=== PATIENT | female | born 2000 ===

== ENCOUNTER 2019-10-26 07:01 | Day surgery (SDC) | payer MEDICARE, MEDICAID ==
[2019-10-26] MEDS ORDERED: PROPOFOL INJ 200 MG/20 ML VIAL IV ONE (07:55)
--- NOTE | 2019-10-26 09:33 | Operative Report ---
Operative Report DATE OF SURGERY: 10/26/19 Operative Report: The risk, benefits and alternatives of the procedure including the risk of bleeding, perforation requiring surgery have been explained to the patient in detail and informed consent has been obtained. Patient is taken back to the endoscopy suite and placed in a left, lateral decubital position. Timeout was called. Propofol medication is administered. Rectal examination is done which did not reveal any masses, tears or fissures. An Olympus videoscope was introduced into the patient's rectum. Scope was then carefully advanced all the way to the cecum. Cecum was identified by the usual anatomical landmarks including the ileocecal valve as well as the appendiceal office. Photodocumentation is obtained. Scope was then sequentially pulled back via the various segments of the colon including the ascending colon, hepatic flexure, transverse colon, splenic flexure, descending colon and finally into the rectosigmoid portions of the colon. Retroflexion maneuvers performed. PREOPERATIVE DIAGNOSIS: Change in bowel habits POSTOPERATIVE DIAGNOSIS: atonic colon. Decent prep but right side of the colon still filled with residual material. Right colon inflammation status post biopsy. No obstruction noted OPERATION: Colonoscopy with biopsy SURGEON: MARY KAY BLANCO ANESTHESIA: LMAC TISSUE REMOVED OR ALTERED: As noted above. COMPLICATIONS: None. ESTIMATED BLOOD LOSS: None. INTRAOPERATIVE FINDINGS: As noted above. PROCEDURE: Patient tolerated the procedure well. No immediate postprocedure complications are noted. Patient is discharged in good condition. Discharge date 10/26/2019. Discharge diet: Regular. Discharge activity: Regular. 2 to 3-week follow-up to discuss findings. Patient is instructed to call the office or proceed to the emergency room should there be any further problems or questions. Wait on the pathology.
[2019-10-26 10:12] VITALS: BP 108/73
== END 2019-10-26 10:15 | disposition home or self-care (01) ==
LOC: END 07:01
PROVIDERS: ATTEND Internal Medicine Gastroenterology
DX: K59.00 Constipation, unspecified (principal); K52.9 Noninfective gastroenteritis and colitis, unspecified; E11.9 Type 2 diabetes mellitus without complications; I10 Essential (primary) hypertension; F84.0 Autistic disorder; F20.9 Schizophrenia, unspecified; Z79.84 Long term (current) use of oral hypoglycemic drugs; Z79.899 Other long term (current) drug therapy; K59.8 Other specified functional intestinal disorders
CPT/HCPCS: 45380; 82962; 88305 ×2; 00811; J2704; 811

== ENCOUNTER 2019-11-23 14:22 | Emergency (ER) | payer MEDICARE, MEDICAID ==
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
--- NOTE | 2019-11-23 15:23 | RADIOLOGY REPORT (SQ) ---
EXAM DESCRIPTION: CHEST SINGLE VIEW IMAGES COMPLETED DATE/TIME: 11/23/2019 3:14 pm REASON FOR STUDY: bed 5 tube placement COMPARISON: None. EXAM PARAMETERS: NUMBER OF VIEWS: One view. TECHNIQUE: Single frontal radiographic view of the chest acquired. RADIATION DOSE: NA LIMITATIONS: None. FINDINGS: LUNGS AND PLEURA: Endotracheal tube and NG tube are in place. Endotracheal tube lies ralph ral cm above the wing. Tip of the NG tube lies in the left upper quadrant most likely within stoma ch. Lung volumes are low. No focal consolidation. No pneumothorax. MEDIASTINUM AND HILAR STRUCTURES: No masses. Contour normal. HEART AND VASCULAR STRUCTURES: Heart normal in size. Normal vasculature. BONES: No acute findings. HARDWARE: None in the chest. OTHER: No other significant finding. IMPRESSION: NG tube and endotracheal tube are in satisfactory position. Low lung volumes. TECHNICAL DOCUMENTATION: JOB ID: [id number] 2010 [employer]- All Rights Reserved Reading location - IP/workstation name: [email or web address]
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
[2019-11-23] MEDS ORDERED: HALOPERIDOL LACTATE INJ 5 MG/1 ML VIAL IV ONE (16:14)
[2019-11-23] MEDS ORDERED: HALOPERIDOL LACTATE INJ 5 MG/1 ML VIAL IM ONE (16:23)
[2019-11-23 16:46] LABS: INTERNATIONAL RATION (INR) 1.07; PROTHROMBIN TIME 14.1 SEC (11.4-15.4)
[2019-11-23 16:55] LABS: ABSOLUTE EOSINOPHILS # (AUTO) 0.1 10^3/uL (0.0-0.6); ABSOLUTE LYMPHOCYTES (AUTO) 1.9 10^3/uL (0.5-4.7); ABSOLUTE MONOCYTES (AUTO) 0.8 10^3/uL (0.1-1.4); ABSOLUTE NEUT (AUTO) 6.6 10^3/uL (1.7-8.2); BASOPHILS % (AUTO) 0.5 % (0-2); HEMATOCRIT 35.1 % (36.0-47.0); LYMPHOCYTES % (AUTO) 20.1 % (13-45); MEAN CORPUSCULAR HEMOGLOBIN 29.9 pg (27.0-33.4); MEAN CORPUSCULAR HGB CONC 34.3 g/dL (32.0-36.0); MEAN CORPUSCULAR VOLUME 87 fl (80-97); MONOCYTES % (AUTO) 8.7 % (3-13); PLATELET COUNT 190 10^3/uL (150-450); RED BLOOD COUNT 4.02 10^6/uL (3.72-5.28); RED CELL DISTRIBUTION WIDTH 13.3 % (11.5-14.0); SEGMENTED NEUTROPHILS % (AUTO) 69.7 % (42-78); TOTAL CELLS COUNTED % (AUTO) 100 %; WHITE BLOOD COUNT 9.5 10^3/uL (4.0-10.5)
[2019-11-23 16:56] LABS: ALBUMIN 4.4 g/dL (3.5-5.0); ALKALINE PHOSPHATASE 52 U/L (38-126); ANION GAP 14 (5-19); ASPARTATE AMINO TRANSFERASE 20 U/L (14-36); BILIRUBIN,DIRECT 0.3 mg/dL (0.0-0.4); BILIRUBIN,TOTAL 0.4 mg/dL (0.2-1.3); BLOOD UREA NITROGEN 8 mg/dL (7-20); CALCIUM 9.2 mg/dL (8.4-10.2); CARBON DIOXIDE 23 mmol/L (22-30); CHLORIDE 103 mmol/L (98-107); CREATINE KINASE 108 U/L (30-135); GLUCOSE 135 mg/dL (75-110); POTASSIUM 4.8 mmol/L (3.6-5.0); TOTAL PROTEIN 6.8 g/dL (6.3-8.2)
[2019-11-23 17:07] LABS: ACETAMINOPHEN < 10 ug/mL (10-30); ALCOHOL < 10 mg/dL (NONE DETECTED); SALICYLATE < 1.0 mg/dL (2.0-20.0)
--- NOTE | 2019-11-23 17:08 | RADIOLOGY REPORT (SQ) ---
EXAM DESCRIPTION: CHEST SINGLE VIEW IMAGES COMPLETED DATE/TIME: 11/23/2019 4:57 pm REASON FOR STUDY: Postextubation COMPARISON: Earlier the same day. EXAM PARAMETERS: NUMBER OF VIEWS: One view. TECHNIQUE: Single frontal radiographic view of the chest acquired. RADIATION DOSE: NA LIMITATIONS: Low lung volumes. FINDINGS: LUNGS AND PLEURA: Patient has been extubated. There is atelectasis in the right base. Mavis ng guajardo are otherwise clear. Study is limited by low lung volumes. MEDIASTINUM AND HILAR STRUCTURES: No masses. Contour normal. HEART AND VASCULAR STRUCTURES: Stable in appearance. BONES: No acute findings. HARDWARE: None in the chest. OTHER: NG tube is been removed. IMPRESSION: Right basilar airspace disease most consistent with atelectasis. TECHNICAL DOCUMENTATION: JOB ID: [id number] 2010 [employer]- All Rights Reserved Reading location - IP/workstation name: [email or web address]
[2019-11-23] MEDS ORDERED: NORMAL SALINE 1000 ML 1,000 ML IV ONE (17:53)
[2019-11-23 17:59] LABS: APPEARANCE,URINE SLIGHTLY-CLOUDY; BILIRUBIN,URINE NEGATIVE (NEGATIVE); COLOR,URINE YELLOW; GLUCOSE, URINE NEGATIVE (NEGATIVE); KETONES,URINE NEGATIVE (NEGATIVE); PROTEIN,URINE 100 mg/dL (NEGATIVE); URINE SPECIFIC GRAVITY 1.019; UROBILINOGEN,URINE NEGATIVE mg/dL (<2.0)
[2019-11-23 18:21] LABS: URINE AMPHETAMINES SCREEN NEGATIVE; URINE BARBITURATES SCREEN NEGATIVE; URINE BENZODIAZEPINES SCREEN NEGATIVE; URINE COCAINE SCREEN NEGATIVE; URINE MARIJUANA (THC) SCREEN NEGATIVE; URINE METHADONE SCREEN NEGATIVE; URINE PHENCYCLIDINE SCREEN NEGATIVE
--- NOTE | 2019-11-23 19:51 | EKG REPORT ---
SEVERITY:- ABNORMAL ECG - SINUS RHYTHM NONSPECIFIC T ABNORMALITIES, ANTERIOR LEADS : Confirmed by: Germaine Quiroz 23-Nov-2019 19:50:35
[2019-11-23] MEDS ORDERED: HYDROXYZINE PAMOATE 25 MG CAPSULE PO PRN (21:36)
[2019-11-23] MEDS: RISPERIDONE 1 MG TABLET PO SCH (22:21)
[2019-11-23] MEDS: TRAZODONE HCL 50 MG TABLET PO SCH (22:21)
[2019-11-23] MEDS: PROPRANOLOL HCL 10 MG TABLET PO SCH (22:24)
[2019-11-24] MEDS: PROPRANOLOL HCL 10 MG TABLET PO SCH ×3 (07:41→21:57)
[2019-11-24] MEDS: NALTREXONE HCL 50 MG TABLET PO SCH (11:28)
[2019-11-24] MEDS: RISPERIDONE 1 MG TABLET PO SCH ×2 (11:29→21:58)
[2019-11-24] MEDS: FLUOXETINE HCL 20 MG CAPSULE PO SCH (11:29)
[2019-11-24] MEDS: METFORMIN HCL 500 MG TABLET PO SCH (11:30)
[2019-11-24] MEDS: DIVALPROEX SODIUM 250 MG TABLET.DR PO SCH (13:41)
--- NOTE | 2019-11-24 14:37 | RADIOLOGY REPORT (SQ) ---
EXAM DESCRIPTION: CHEST SINGLE VIEW IMAGES COMPLETED DATE/TIME: 11/24/2019 2:26 pm REASON FOR STUDY: cough COMPARISON: 11/23/2019 EXAM PARAMETERS: NUMBER OF VIEWS: One view. TECHNIQUE: Single frontal radiographic view of the chest acquired. RADIATION DOSE: NA LIMITATIONS: None. FINDINGS: LUNGS AND PLEURA: There is ill-defined persistent opacification in the right lung base. T his appears to be slightly improved. There is better aeration of the lungs on this study. MEDIASTINUM AND HILAR STRUCTURES: No masses. Contour normal. HEART AND VASCULAR STRUCTURES: Heart normal in size. Normal vasculature. BONES: No acute findings. HARDWARE: None in the chest. OTHER: No other significant finding. IMPRESSION: Cannot exclude a limited right lower lobe or middle lobe pneumonia. TECHNICAL DOCUMENTATION: JOB ID: [id number] 2010 [employer]- All Rights Reserved Reading location - IP/workstation name: [email or web address]
[2019-11-24] MEDS: AMOXICILLIN TR/POT CLAVULANATE 875-125 MG TAB PO SCH (17:49)
[2019-11-24] MEDS: TRAZODONE HCL 50 MG TABLET PO SCH (21:56)
[2019-11-25] MEDS: PROPRANOLOL HCL 10 MG TABLET PO SCH ×3 (06:51→22:48)
[2019-11-25] MEDS: AMOXICILLIN TR/POT CLAVULANATE 875-125 MG TAB PO SCH ×2 (12:18→20:40)
[2019-11-25] MEDS: METFORMIN HCL 500 MG TABLET PO SCH (12:19)
[2019-11-25] MEDS: FLUOXETINE HCL 20 MG CAPSULE PO SCH (12:48)
[2019-11-25] MEDS: NALTREXONE HCL 50 MG TABLET PO SCH (13:26)
[2019-11-25] MEDS: RISPERIDONE 1 MG TABLET PO SCH ×2 (13:34→22:47)
[2019-11-25] MEDS: DIVALPROEX SODIUM 250 MG TABLET.DR PO SCH (13:35)
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
--- NOTE | 2019-11-25 17:17 | ER Document Report ---
Doctor's Note Notes: 11/25/19 17:16 Patient reassessed just now. Patient is resting comfortably in the bed watching TV. She is just finished having a snack. She has been tolerating p.o. well. Vital signs have been stable. We are currently working on placement through social work. Social workers had multiple conversations with mom trying to arrange for the best placement for the patient. We will continue to manage the patient here until we can obtain a satisfactory disposition.
[2019-11-25] MEDS ORDERED: MIDAZOLAM 2 MG/2 ML INJ IM ONE (19:24)
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
[2019-11-25] MEDS ORDERED: BENZTROPINE MESYLATE INJ 2 MG/2 ML AMPULE IM ONE (21:59)
--- NOTE | 2019-11-25 22:00 | ER Document Report ---
Doctor's Note Notes: 11/25/19 21:59 Nursing staff approached me about medication orders for this patient. The patient is being uncooperative and unruly. Mental health recommended adding Thorazine 50 mg IM every 6 as needed and Cogentin 1 mg IM now. They also advised canceling the order for Vistaril. This is a social hold so I did speak with the attending physician, Dr. Vasquez who agrees with adding these medications.
[2019-11-25] MEDS: CHLORPROMAZINE HCL INJ 25 MG/1 ML AMPULE IM PRN (22:42)
[2019-11-25] MEDS: TRAZODONE HCL 50 MG TABLET PO SCH (22:47)
[2019-11-26] MEDS: PROPRANOLOL HCL 10 MG TABLET PO SCH ×3 (05:57→22:32)
[2019-11-26] MEDS: METFORMIN HCL 500 MG TABLET PO SCH (09:41)
[2019-11-26] MEDS: RISPERIDONE 1 MG TABLET PO SCH ×2 (09:44→22:33)
[2019-11-26] MEDS: AMOXICILLIN TR/POT CLAVULANATE 875-125 MG TAB PO SCH ×2 (09:44→17:58)
[2019-11-26] MEDS: DIVALPROEX SODIUM 250 MG TABLET.DR PO SCH (09:45)
[2019-11-26] MEDS: FLUOXETINE HCL 20 MG CAPSULE PO SCH (09:46)
[2019-11-26] MEDS: NALTREXONE HCL 50 MG TABLET PO SCH (09:47)
--- NOTE | 2019-11-26 12:06 | PSYCHOLOGICAL NOTE ---
Psych Note - Psych Note Date seen by psych provider: 11/25/19 - Phone call with Risk Management Time seen by psych provider: 20:30 Psych Note: Spoke with Danna Ceci regarding mother refusing to picker packer daughter. Advised her fully of situation and concern that mother wanted to come visit the patient but not pick her up. Asked Danna if we were required to provide her information more than significant incidents. She stated we should provide her information if she asks and to contact Jerica Cuevas (LINER MACHINE OPERATOR) since she (Danna) would be out of town for the next week and it was late (2030 hrs).
--- NOTE | 2019-11-26 12:12 | PSYCHOLOGICAL NOTE ---
Psych Note - Psych Note Date seen by psych provider: 11/26/19 Time seen by psych provider: 12:00 Psych Note: At 1053 patient's mother called the [facility] office. When this clinician answered "this is Is[facility]ell at [place]" mother stated "Oh I called the wrong number thank you" and hung up. From [id number] spoke to Hali ([phone]) from [facility] for care coordination/continuity of care. She identified she called mother this morning and mother informed her of the behavioral episode last evening. She was informed patient had been calm and cooperative prior to episode and after so it was felt to be directly related to mother not picking patient up for discharge (likely patient's perspective being mother not visiting). She reported she is a temporary contact for mother and patient. She further stated they are looking to assign a more permanent day care teacher to help navigate and obtain appropriate services. At 1227 went to check in on patient. She was sleeping. Attending ED Nurse identified patient was able to let her know she had gotten syrup on her shirt, patient changed her own clothes, and was even polite and cordial saying thank you. Attending Patient Research Subject reported patient asked him to get her breakfast, he said no she could get up to get it herself, and she did. He also noted patient asked for a table, he told her no and she ate her food in her bed. Finally he stated patient asked him to cut up her food, he said no you can use the fork or tear it, which she did. Patient's status has not changed and mental status is considered baseline. Consulted Dr. Mckeon regarding the management and care of patient.
--- NOTE | 2019-11-26 13:48 | ER Document Report ---
Doctor's Note Notes: 11/26/19 13:14 Spoke with mother, Ann Johnson, of patient for approximately 30 minutes concerning patient. She discussed her concerns regarding lack of resources and the need for her daughter to be in a facility. She discussed how she believed the [place] [facility] worked and her thoughts that her daughter could stay at the hospital until a facility was located. Empathized with the mother regarding her frustrations about the lack of resources for someone who has severe IDD and the inability to place her in a psychiatric facility. Advised her that most psychiatric facilities are private and have their own criteria, that [facility] does not have a psychiatric unit, we were only an emergency department, and she would be unable to stay in the hospital until patient was accepted on the waiver. Mother continued to discuss her previous problems in other states and was not receptive to offers for services as she would "yes but...." when offered follow up or assistance or information about the service. Discussed with mother the Patient's outburst last evening and that it was documented that t was secondary to the patient not seeing or talking with her mother. Mother immediately commented that gher outburst and subsequent behavior, i.e. being aggressive, impulsive, putting towel around neck, tearing sheets off bed, grabbing anything available, is typical of her her behavior and outbursts. Mother continued to be resistant to picking up her daughter stating she feared she would be charged criminally if she had to defend her daughter if her daughter tried to hurt her. I explained to her again that APS was contacted and we try to work weith them to put something in place for the protection of individuals, not be punitive in nature. She stated multiple times she was not upset with the hospital or personnel, rather the State of [place] for the way they operate and do not have appropriate services for someone with her daughter's disabilities. Continued to empathize and provide a different perspective with regard to how she could be assisted once discharged but mother remained resistant Spoke with Jerica Cuevas at conclusion of conversation with update.
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
[2019-11-26] MEDS ORDERED: IBUPROFEN 600 MG TABLET PO ONE (19:33)
[2019-11-26] MEDS: TRAZODONE HCL 50 MG TABLET PO SCH (22:32)
[2019-11-27] MEDS ORDERED: TRAZODONE HCL 50 MG TABLET PO ONE (00:55)
[2019-11-27] MEDS: PROPRANOLOL HCL 10 MG TABLET PO SCH ×3 (05:53→21:28)
[2019-11-27] MEDS: METFORMIN HCL 500 MG TABLET PO SCH (10:45)
[2019-11-27] MEDS: DIVALPROEX SODIUM 250 MG TABLET.DR PO SCH (10:45)
[2019-11-27] MEDS: NALTREXONE HCL 50 MG TABLET PO SCH (10:45)
[2019-11-27] MEDS: FLUOXETINE HCL 20 MG CAPSULE PO SCH (10:45)
[2019-11-27] MEDS: AMOXICILLIN TR/POT CLAVULANATE 875-125 MG TAB PO SCH ×2 (11:05→17:37)
[2019-11-27] MEDS: RISPERIDONE 1 MG TABLET PO SCH ×2 (11:07→21:32)
--- NOTE | 2019-11-27 11:15 | ER Document Report ---
Doctor's Note Notes: 11/27/19 10:52 Maddie, Raveler from [facility] called seeking an update on the case. Advised her I had spoken with patient's mother, Jerica Cuevas, and Lana Catalan yesterday, all in effort of ongoing coordination. Maddie advised she speaks with mother daily and mother continues to refuse the resources and services they have offered as well such as day programming and a form a of in home services. Maddie indicated the case will be transferred to more permanent care coordinators who will continue to work on the case but feels as though they will not likely have a solution before the end of the day and if mom continues to refuse to bean picker machine operator the patient, the patient will likely continue to remain in the ED through the weekend. Maddie indicated she felt in part the difficulty was that the Patient has displayed just one outburst since coming to the ED, this is her first crisis response since moving to [place], and as such, the pattern of behavior outbursts appear to controlled at this time and the initial crisis resolved. I advised Maddie that I was in agreement as it was felt the crisis was stabilized, has been stabilized, and the Patient was in a position to be discharged, has been in a position for discharge, and that longer term care can continue to be worked on while Patient is at home. Advised Maddie that Patient will always be subject to outbursts, and as mother recently stated, these have been ongoing since age 1, thus not treatable or curable in an ED environment. Additionally, the behavior outbursts are not predictable and the ED cannot hold the Patient waiting for her to have a next outburst. As stated to Maddie, it is felt the Patient's rights are being violated by the mother refusing to pick her up and take her home. APS has been contacted on two occasions but has yet to come to the hospital (at least by lack of documentation) to see the Patient and per Maddie (after talking with mother this morning) APS has yet to contact her as well. Patient is stabilized on her medications. Developmentally she is at age 1 per psychological report documentation provided by her mother. Her psychological and developmental condition is not likely to improve to meet her chronological age. Thus, she does not meet inpatient (i.e. emergency department) criteria as she is not capable of comprehending harm to self actions, rather her outbursts are simply impulse acts as a means of communicating frustration, anger, and other emotions she is not able to express or have the language abilities to communicate. The behavior outbursts cannot be broken down into acts, rather they are considered one incident, without thought, and are simply behaviors. She will always be risk for harming herself secondary to lack of danger and safety awareness. This condition is considered chronic in nature and not an acute condition. Her outbursts are an exacerbation of her inability to communicate or understand emotion and at that time, due to her size and strength (of which she does not have awareness), she is intimidating and requires multiple individuals to intervene in an effort to maintain her safety. Her cognitive limitations do not allow for abstract or higher level cortical thinking or even rational thought, as that part of her brain or functions of her brain are either not developed or are not accessible. As such, the diagnosis of Severe Autism, or IDD. The Patient is felt to require a structured, predictable, safe and comfortable environment going forward and likely for the unforseeable future, to maintain her safety and to provide her the best quality of life possible. However, at this time, the emergency department does not meet any of those requirements for this Patient as the ED is unpredictable, chaotic, and though every attempt is made to make it safety proof for patients, impulsive individuals like this Patient can find items such as bedsheets, hand equipment mechanic machines in the hallway, etc. to use as weapons. Moreover, the ED has constantly changing faces with shift changes, patient changes, etc. which can cause great confusion and anxiety, potentiating the possibility of a behavioral outburst. Thus, it remains highly recommended this Patient be discharged home with her mother until more permanent and higher level long-term placement can be located.
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
--- NOTE | 2019-11-27 14:55 | PSYCHOLOGICAL NOTE ---
Psych Note - Psych Note Date seen by psych provider: 11/27/19 Time seen by psych provider: 10:45 Psych Note: Reason for Consult: Behavioral Check in conducted with patient: Patient reports she remember clinician. She asks when she is going home and asked clinical to call her mom. Patient was offered a stuffed animal to re- enforce continued good behaviour. patient smiles and engages with clinician; she is at her baseline. While clinician was with another patient, the patient became nervous and scared. Safety companies were able to calm the patient, she continues to be compliant with staff request.
--- NOTE | 2019-11-27 18:19 | ER Document Report ---
Doctor's Note Notes: 11/27/19 18:19 The patient has done well today. She did get a stuffed animal to help her remain calm and it seemed to help. I am told at this point there is still no resolution to the placement dilemma that she faces.
[2019-11-27] MEDS ORDERED: CALCIUM CARBONATE 500 MG TAB.CHEW PO ONE (20:27)
[2019-11-27] MEDS: TRAZODONE HCL 50 MG TABLET PO SCH (21:32)
[2019-11-28] MEDS: PROPRANOLOL HCL 10 MG TABLET PO SCH ×3 (06:00→22:35)
[2019-11-28] MEDS: FLUOXETINE HCL 20 MG CAPSULE PO SCH (10:09)
[2019-11-28] MEDS: NALTREXONE HCL 50 MG TABLET PO SCH (10:09)
[2019-11-28] MEDS: DIVALPROEX SODIUM 250 MG TABLET.DR PO SCH (10:09)
[2019-11-28] MEDS: METFORMIN HCL 500 MG TABLET PO SCH (10:09)
[2019-11-28] MEDS: RISPERIDONE 1 MG TABLET PO SCH ×2 (10:10→22:35)
[2019-11-28] MEDS: AMOXICILLIN TR/POT CLAVULANATE 875-125 MG TAB PO SCH ×2 (10:10→18:35)
[2019-11-28] MEDS: CHLORPROMAZINE HCL INJ 25 MG/1 ML AMPULE IM PRN (16:35)
--- NOTE | 2019-11-28 20:41 | ER Document Report ---
Doctor's Note Notes: 11/28/19 20:39 Patient was seen today on rounds was noted to be upset and asking to go home. There has been no resolution in a disposition for this patient. She has been started on her home medications and awaiting a disposition.
[2019-11-28] MEDS: TRAZODONE HCL 50 MG TABLET PO SCH (22:35)
[2019-11-29] MEDS: PROPRANOLOL HCL 10 MG TABLET PO SCH ×3 (09:03→21:37)
[2019-11-29] MEDS: DIVALPROEX SODIUM 250 MG TABLET.DR PO SCH (09:18)
[2019-11-29] MEDS: METFORMIN HCL 500 MG TABLET PO SCH (09:18)
[2019-11-29] MEDS: RISPERIDONE 1 MG TABLET PO SCH ×2 (09:18→21:33)
[2019-11-29] MEDS: AMOXICILLIN TR/POT CLAVULANATE 875-125 MG TAB PO SCH ×2 (09:18→18:07)
[2019-11-29] MEDS: FLUOXETINE HCL 20 MG CAPSULE PO SCH (09:18)
[2019-11-29] MEDS: NALTREXONE HCL 50 MG TABLET PO SCH (10:10)
--- NOTE | 2019-11-29 12:20 | PSYCHOLOGICAL NOTE ---
Psych Note - Psych Note Date seen by psych provider: 11/29/19 Psych Note: Clinician spoke with APS after hours worker, Le Cárdenas at 1401. She stated she will contact the printing worker supervisor and will call back. Clinician received a call back for ARNAUD Lujan at 1422. She reports there is currently no information on the case. The printing worker supervisor has not staffed the case with the worker and it is not known if the patient's mother has been interviewed yet or what the plan will be, thus the official word currently is they do not have an update at this time. Clinician spoke with patient's mother to provide update at 1425. She confirms she received the envelope of resources from [facility]. She reports she called [facility] of [place] and was told the patient is either too old or they do not have the right programs for the patient. She reports [facility] has told her they are looking for placement and services. APS said that patient would stay at the hospital until the investigate was complete. She reports she will not sheepskin pickler her daughter until "they get her help." Patient's mother is legal guardian from the state of [place]. She asked if she is allowed to speak to the patient; this was offered with the understanding the patient may have a behavioral outburst because she wants to go home. She declines talking to her daughter, stating she understands the concern and feels it would be better not to talk to the patient. Patient's mother mentioned the patient was tested for sleep apnea and was waiting for her BiPAP machine in the mail; "I have a CPAP but they said they were sending a BiPAP....should be here in 2 weeks." updated Medication recommendations per [facility]'s contracted psychiatrist are as follows Please discontinue Trazadone Please decreased evening dose of Rispirdone to 2mg Please decrease Prozac to 20mg daily all other medications maintain at current dosing
--- NOTE | 2019-11-29 19:24 | ER Document Report ---
Doctor's Note Notes: 11/29/19 19:22 The patient has had a day where she spent most of the time in bed and more sleepy than usual. Staff notes that she is had a heart rate in the 46 range and for that reason was not given the beta-tita. Medication changes were recommended to discontinue the trazodone, decrease the Risperdal to 2 mg at nigh t and to decrease the Prozac to 20 mg daily. Those orders have been entered into the system. At the time that I visited the patient was about to eat dinner she is alert and talkative and appropriately smiled. He is still awaiting disposition.
[2019-11-29] MEDS: CHLORPROMAZINE HCL INJ 25 MG/1 ML AMPULE IM PRN (20:23)
[2019-11-30] MEDS: PROPRANOLOL HCL 10 MG TABLET PO SCH ×3 (05:31→22:24)
[2019-11-30] MEDS: FLUOXETINE HCL 20 MG CAPSULE PO SCH (09:19)
[2019-11-30] MEDS: DIVALPROEX SODIUM 250 MG TABLET.DR PO SCH (09:19)
[2019-11-30] MEDS: AMOXICILLIN TR/POT CLAVULANATE 875-125 MG TAB PO SCH ×2 (09:19→18:23)
[2019-11-30] MEDS: RISPERIDONE 1 MG TABLET PO SCH ×2 (09:22→21:27)
[2019-11-30] MEDS: METFORMIN HCL 500 MG TABLET PO SCH (09:22)
[2019-11-30] MEDS: NALTREXONE HCL 50 MG TABLET PO SCH (09:23)
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
--- NOTE | 2019-11-30 19:35 | ER Document Report ---
Doctor's Note Notes: 11/30/19 19:34 Patient reexamined just now. Patient finished dinner without problem about 45 minutes ago. Patient is easily aroused. When I asked patient if she was feeling okay she stated yes. Patient's vital signs have been stable today with heart rate improved as the beta-blockers been decreased. Patient has been w ithout significant issues today and is still awaiting placement.
[2019-12-01] MEDS: PROPRANOLOL HCL 10 MG TABLET PO SCH ×3 (06:51→21:54)
[2019-12-01] MEDS: CHLORPROMAZINE HCL INJ 25 MG/1 ML AMPULE IM PRN ×2 (09:57→17:16)
[2019-12-01] MEDS: DIVALPROEX SODIUM 250 MG TABLET.DR PO SCH (09:57)
[2019-12-01] MEDS: RISPERIDONE 1 MG TABLET PO SCH ×2 (09:58→21:59)
[2019-12-01] MEDS: FLUOXETINE HCL 20 MG CAPSULE PO SCH (09:58)
[2019-12-01] MEDS: METFORMIN HCL 500 MG TABLET PO SCH (09:58)
[2019-12-01] MEDS: AMOXICILLIN TR/POT CLAVULANATE 875-125 MG TAB PO SCH ×2 (09:58→18:49)
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
[2019-12-01] MEDS: NALTREXONE HCL 50 MG TABLET PO SCH (13:05)
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
--- NOTE | 2019-12-01 19:56 | PSYCHOLOGICAL NOTE ---
Psych Note - Psych Note Date seen by psych provider: 12/01/19 Psych Note: Clinician contacted [facility] and spoke with Valentine, She reports they are unable to take a patient with an IQ of 40. Clinician contacted [facility] and spoke with Eliel, She reports they are unable to take a patient with an IQ of 40. Clinician contacted [facility] and spoke with Kuldip, She reports they are unable to take a patient with an IQ of 40. Clinician contacted [facility] and spoke with Amada, She reports they are unable to take a patient with an IQ of 40; their cut off is 70. Clinician contacted [facility] and spoke with Thiago, She reports they are unable to take any IDD patients. Clinician contacted [facility] and left a message for Director Buffy Dupree; admissions was unable to provided any information on if they take IDD in acute and what the expected wait time for IDD unit treatment.
[2019-12-02] MEDS: PROPRANOLOL HCL 10 MG TABLET PO SCH ×3 (06:55→21:25)
[2019-12-02] MEDS: DIVALPROEX SODIUM 250 MG TABLET.DR PO SCH (09:38)
[2019-12-02] MEDS: AMOXICILLIN TR/POT CLAVULANATE 875-125 MG TAB PO SCH ×2 (09:38→17:52)
[2019-12-02] MEDS: METFORMIN HCL 500 MG TABLET PO SCH (09:38)
[2019-12-02] MEDS: RISPERIDONE 1 MG TABLET PO SCH ×2 (09:38→21:25)
[2019-12-02] MEDS: FLUOXETINE HCL 20 MG CAPSULE PO SCH (09:39)
[2019-12-02] MEDS: NALTREXONE HCL 50 MG TABLET PO SCH (09:43)
[2019-12-02] MEDS: CHLORPROMAZINE HCL INJ 25 MG/1 ML AMPULE IM PRN (14:45)
[2019-12-02] MEDS ORDERED: DIPHENHYDRAMINE HCL 50 MG/ML VIAL IM ONE (15:10)
--- NOTE | 2019-12-02 19:53 | ER Document Report ---
Doctor's Note Notes: 12/02/19 19:46 There is still no agreed-upon disposition for this patient. She was acting out a little worse today screaming quite a lot despite receiving Thorazine. She was given 50 mg of Benadryl IM. The screaming stopped, but the acting out continued somewhat. Behavioral health recommended she not receive additional Benadryl, but just received up to 100 mg of Thorazine per dose if it was needed. I asked the nurse to inform all nurses taking care of the patient going forward that they could give an additional 50 mg of Thorazine IM if the first 50 mg was inadequate when it was being given on a every 6 as needed basis. I did not see an easy way to order it like that and it not be dangerously confusing in the electronic record.
[2019-12-02] MEDS ORDERED: ACETAMINOPHEN 325 MG TABLET ONE (21:51)
[2019-12-02] MEDS ORDERED: ACETAMINOPHEN 325 MG TABLET PO ONE (22:00)
[2019-12-03] MEDS: CHLORPROMAZINE HCL INJ 25 MG/1 ML AMPULE IM PRN ×3 (00:01→23:14)
[2019-12-03] MEDS: PROPRANOLOL HCL 10 MG TABLET PO SCH ×3 (06:20→21:03)
[2019-12-03] MEDS: DIVALPROEX SODIUM 250 MG TABLET.DR PO SCH (09:18)
[2019-12-03] MEDS: RISPERIDONE 1 MG TABLET PO SCH ×2 (09:18→21:03)
[2019-12-03] MEDS: AMOXICILLIN TR/POT CLAVULANATE 875-125 MG TAB PO SCH ×2 (09:19→18:52)
[2019-12-03] MEDS: METFORMIN HCL 500 MG TABLET PO SCH (09:19)
[2019-12-03] MEDS: NALTREXONE HCL 50 MG TABLET PO SCH (09:21)
[2019-12-03] MEDS: FLUOXETINE HCL 20 MG CAPSULE PO SCH (09:26)
--- NOTE | 2019-12-03 14:28 | PSYCHOLOGICAL NOTE ---
Psych Note - Psych Note Date seen by psych provider: 12/02/19 Time seen by psych provider: 10:00 Psych Note: Patient spoke with Margo Dupree of [facility]. Margo Dupree is the director at [facility]. She reports there are no IDD programs or units in [facility]. Even if an exception waiver is obtained she reports "I would work aggressively not to take an IDD patient due to the units not being ." She reports that it is not the appropriate facility and IDD population would have not have enough supervision; "we try to do no more damage" and the specifics concern would be supervision level and being mixed in with the general population. She disclosed that the only hospital she is aware of that has an IDD in mental health unit is [facility]; however, discloses that they still must meet IVC criteria and they monitor very closely to ensure that there is a true psychiatric need that it is not just IDD behavioral. Clinician engaged in meeting to collaborate with multiple organizations working with patient and family in an attempt to build plan of care. At this time, there is nothing further for the behavioral health team; however, we will continue to work jointly with the different agencies, the departments in [facility], and the patient and family to assist in any way possible.
[2019-12-04] MEDS: PROPRANOLOL HCL 10 MG TABLET PO SCH ×3 (06:28→22:10)
[2019-12-04] MEDS: AMOXICILLIN TR/POT CLAVULANATE 875-125 MG TAB PO SCH (10:54)
[2019-12-04] MEDS: METFORMIN HCL 500 MG TABLET PO SCH (10:54)
[2019-12-04] MEDS: FLUOXETINE HCL 20 MG CAPSULE PO SCH (10:56)
[2019-12-04] MEDS: RISPERIDONE 1 MG TABLET PO SCH ×2 (10:58→22:10)
[2019-12-04] MEDS: DIVALPROEX SODIUM 250 MG TABLET.DR PO SCH (10:59)
[2019-12-04] MEDS: NALTREXONE HCL 50 MG TABLET PO SCH (11:02)
[2019-12-04] MEDS: CHLORPROMAZINE HCL INJ 25 MG/1 ML AMPULE IM PRN (21:26)
--- NOTE | 2019-12-04 21:41 | ER Document Report ---
Doctor's Note Notes: 12/04/19 21:38 No new medical problems, patient is eating at the time of this encounter. She seems to be in good spirits, however, continues to ask when she is going home. There was a message from the mother stating that the patient is supposedly on CPAP at night. In order is placed to respiratory for CPAP. Continues to await a placement plan. 12/04/19 21:39
[2019-12-05] MEDS: PROPRANOLOL HCL 10 MG TABLET PO SCH ×3 (05:50→22:00)
[2019-12-05] MEDS: NALTREXONE HCL 50 MG TABLET PO SCH (12:36)
[2019-12-05] MEDS: DIVALPROEX SODIUM 250 MG TABLET.DR PO SCH (12:37)
[2019-12-05] MEDS: RISPERIDONE 1 MG TABLET PO SCH ×2 (12:38→21:56)
[2019-12-05] MEDS: FLUOXETINE HCL 20 MG CAPSULE PO SCH (12:38)
[2019-12-05] MEDS: METFORMIN HCL 500 MG TABLET PO SCH (12:40)
[2019-12-05] MEDS: CHLORPROMAZINE HCL INJ 25 MG/1 ML AMPULE IM PRN (15:57)
--- NOTE | 2019-12-05 17:29 | ER Document Report ---
Doctor's Note Notes: 12/05/19 17:22 Patient was seen today on rounds, she is coloring, apparently was given a bed bath and continues to ask when she is going home. Presently no clear disposition has been determined. She has continued to have periodic outbursts, however, does respect authority. Has consistently requested to go home. Given there is no acute medical indication for the patient to be here and a discharge had been done the question of abandonment should be raised with high school social studies teacher.
[2019-12-06] MEDS: PROPRANOLOL HCL 10 MG TABLET PO SCH ×3 (07:14→21:18)
[2019-12-06] MEDS: METFORMIN HCL 500 MG TABLET PO SCH (11:08)
[2019-12-06] MEDS: RISPERIDONE 1 MG TABLET PO SCH ×2 (11:09→21:20)
[2019-12-06] MEDS: NALTREXONE HCL 50 MG TABLET PO SCH (11:09)
[2019-12-06] MEDS: FLUOXETINE HCL 20 MG CAPSULE PO SCH (11:09)
[2019-12-06] MEDS: DIVALPROEX SODIUM 250 MG TABLET.DR PO SCH (11:40)
--- NOTE | 2019-12-06 15:31 | ER Document Report ---
Doctor's Note Notes: 12/06/19 15:29 Clinically unchanged. Remains on Social Hold status without clear-cut disposition plan. Await further input from d/c planning team.
[2019-12-06] MEDS: CHLORPROMAZINE HCL INJ 25 MG/1 ML AMPULE IM PRN (16:33)
--- NOTE | 2019-12-06 20:58 | PSYCHOLOGICAL NOTE ---
Psych Note - Psych Note Date seen by psych provider: 12/04/19 Time seen by psych provider: 11:35 - Attempted evaluation at 1135. Obtained Nurse Collateral from [id number]. Psych Note: Patient was sleeping and would not wake when medical staff attempted to do so. Medical staff reported patient had been awake earlier and moving around. Attending Nurse reported no behavioral issue this morning, had been fine so far. She noted the need for constant redirection. She identified at 1100 gave PRN Thorazine because patient became agitated, screamed and cursed, and expressed she wanted to go home. She went to the bathroom, changed herself, bed linens changed, and once back was more easily directed.
--- NOTE | 2019-12-06 21:02 | PSYCHOLOGICAL NOTE ---
Psych Note - Psych Note Date seen by psych provider: 12/05/19 Time seen by psych provider: 13:00 - Evaluation with patient from [id number]. Psych Note: Patient stated she was doing good. She was sitting upright in bed. She stated she had watched TV, ate both breakfast and lunch, stated she was bored, and asked when she was being discharged. She stated mother had called but she did not get to talk with her. Inquired if she recalled singing Twinkle Twinkle Little Star and Itsy Bitsy Spider with the other Behavioral Health worker a few days ago. She stated yes. This clinician sang the beginning of Twinkle Twinkle Little Star to remind her. Then suggested she sing or hum one of those songs when she starts thinking about wanting to discharge home. She said okay. She then asked to color and was cordial about asking.
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
[2019-12-07] MEDS: PROPRANOLOL HCL 10 MG TABLET PO SCH ×3 (06:40→21:02)
[2019-12-07] MEDS: DIVALPROEX SODIUM 250 MG TABLET.DR PO SCH (09:46)
[2019-12-07] MEDS: FLUOXETINE HCL 20 MG CAPSULE PO SCH (09:47)
[2019-12-07] MEDS: RISPERIDONE 1 MG TABLET PO SCH ×2 (09:48→21:02)
[2019-12-07] MEDS: METFORMIN HCL 500 MG TABLET PO SCH (09:51)
[2019-12-07] MEDS: NALTREXONE HCL 50 MG TABLET PO SCH (09:52)
--- NOTE | 2019-12-07 15:11 | ER Document Report ---
Doctor's Note Notes: 12/07/19 15:11 Clinically unchanged. Remains on Social Hold status without clear-cut disposition plan. Await further input from d/c planning team.
[2019-12-07] MEDS: CHLORPROMAZINE HCL INJ 25 MG/1 ML AMPULE IM PRN (21:20)
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
[2019-12-07] MEDS ORDERED: MELATONIN 5 MG TABLET PO ONE (22:15)
[2019-12-07] MEDS: MELATONIN 5 MG TABLET PO SCH (22:24)
[2019-12-08] MEDS: PROPRANOLOL HCL 10 MG TABLET PO SCH ×3 (06:09→22:41)
[2019-12-08] MEDS: DIVALPROEX SODIUM 250 MG TABLET.DR PO SCH (10:02)
[2019-12-08] MEDS: FLUOXETINE HCL 20 MG CAPSULE PO SCH (10:02)
[2019-12-08] MEDS: METFORMIN HCL 500 MG TABLET PO SCH (10:02)
[2019-12-08] MEDS: RISPERIDONE 1 MG TABLET PO SCH ×2 (10:03→21:53)
[2019-12-08] MEDS: NALTREXONE HCL 50 MG TABLET PO SCH (11:06)
--- NOTE | 2019-12-08 16:14 | ER Document Report ---
Doctor's Note Notes: 12/08/19 16:13 Clinically unchanged. Remains on Social Hold status without clear-cut disposition plan. Await further input from d/c planning team.
--- NOTE | 2019-12-08 16:21 | ER Document Report ---
Doctor's Note Notes: 12/08/19 16:21 Patient is sleeping comfortably on exam but is easily aroused. Apparently overnight patient was agitated and required Thorazine. However this morning she has eaten breakfast taken a shower and has not been agitated. Patient has not had laboratories drawn in several days and is also receiving Depakote therefore a Depakote level on routine labs to be drawn today. Patient's heart is regular rate and rhythm. Lungs are clear to auscultation. Abdomen soft nontender nondistended.
[2019-12-08 17:00] LABS: ABSOLUTE BASOPHILS # (AUTO) 0.1 10^3/uL (0.0-0.2); ABSOLUTE EOSINOPHILS # (AUTO) 0.1 10^3/uL (0.0-0.6); ABSOLUTE LYMPHOCYTES (AUTO) 2.3 10^3/uL (0.5-4.7); ABSOLUTE MONOCYTES (AUTO) 0.7 10^3/uL (0.1-1.4); ABSOLUTE NEUT (AUTO) 5.1 10^3/uL (1.7-8.2); BASOPHILS % (AUTO) 0.9 % (0-2); EOSINOPHILS % (AUTO) 0.6 % (0-6); HEMATOCRIT 31.6 % (36.0-47.0); HEMOGLOBIN 11.2 g/dL (12.0-15.5); MEAN CORPUSCULAR HEMOGLOBIN 30.3 pg (27.0-33.4); MEAN CORPUSCULAR HGB CONC 35.4 g/dL (32.0-36.0); MEAN CORPUSCULAR VOLUME 86 fl (80-97); MONOCYTES % (AUTO) 8.6 % (3-13); PLATELET COUNT 238 10^3/uL (150-450); RED BLOOD COUNT 3.69 10^6/uL (3.72-5.28); RED CELL DISTRIBUTION WIDTH 12.7 % (11.5-14.0); SEGMENTED NEUTROPHILS % (AUTO) 61.9 % (42-78); TOTAL CELLS COUNTED % (AUTO) 100 %; WHITE BLOOD COUNT 8.2 10^3/uL (4.0-10.5)
[2019-12-08 17:19] LABS: ANION GAP 12 (5-19); BLOOD UREA NITROGEN 5 mg/dL (7-20); CALCIUM 9.2 mg/dL (8.4-10.2); CARBON DIOXIDE 27 mmol/L (22-30); CHLORIDE 100 mmol/L (98-107); GLUCOSE 100 mg/dL (75-110); POTASSIUM 4.1 mmol/L (3.6-5.0)
[2019-12-08] MEDS: MELATONIN 5 MG TABLET PO SCH (21:53)
[2019-12-09] MEDS: CHLORPROMAZINE HCL INJ 25 MG/1 ML AMPULE IM PRN ×2 (02:10→09:37)
[2019-12-09] MEDS: PROPRANOLOL HCL 10 MG TABLET PO SCH ×2 (06:02→13:33)
[2019-12-09] MEDS: RISPERIDONE 1 MG TABLET PO SCH ×2 (09:35→22:48)
[2019-12-09] MEDS: DIVALPROEX SODIUM 250 MG TABLET.DR PO SCH (09:36)
[2019-12-09] MEDS: METFORMIN HCL 500 MG TABLET PO SCH (09:37)
[2019-12-09] MEDS: FLUOXETINE HCL 20 MG CAPSULE PO SCH (09:37)
[2019-12-09] MEDS: NALTREXONE HCL 50 MG TABLET PO SCH (09:37)
--- NOTE | 2019-12-09 10:07 | ER Document Report ---
Doctor's Note Notes: 12/09/19 10:07 Patient reevaluated this morning. Patient is sitting in the chair smiling watching TV and coloring in a coloring book. She was stating that she would like to go home. I informed her that we are working on placement for her. She had eaten breakfast without problem this morning. Depakote level was rechecked and is normal although at the high end. I am going to asked nursing to increase hydration status and I will decrease her Depakote dose. 12/09/19 10:08
[2019-12-09] MEDS: MELATONIN 5 MG TABLET PO SCH (22:49)
[2019-12-10] MEDS: NALTREXONE HCL 50 MG TABLET PO SCH (10:30)
[2019-12-10] MEDS: RISPERIDONE 1 MG TABLET PO SCH ×2 (10:30→22:15)
[2019-12-10] MEDS: METFORMIN HCL 500 MG TABLET PO SCH (10:30)
[2019-12-10] MEDS: FLUOXETINE HCL 20 MG CAPSULE PO SCH (10:30)
[2019-12-10] MEDS: DIVALPROEX SODIUM 250 MG TABLET.DR PO SCH (10:30)
--- NOTE | 2019-12-10 12:06 | ER Document Report ---
Doctor's Note Notes: 12/10/19 12:05 Patient is sleeping comfortably in the bed. She has been up and has showered this morning as well as eaten breakfast. At this time she is sleeping but easily arousable. Vital signs have been stable. Heart is regular rate and rhythm. Lungs are clear to auscultation bilaterally. Skin is warm and dry.
[2019-12-10] MEDS: CHLORPROMAZINE HCL INJ 25 MG/1 ML AMPULE IM PRN (16:30)
[2019-12-10] MEDS ORDERED: KETAMINE HCL INJ 500 MG/10 ML VIAL IV ONE (19:18)
[2019-12-10] MEDS: MELATONIN 5 MG TABLET PO SCH (22:15)
[2019-12-11] MEDS: MELATONIN 5 MG TABLET PO SCH ×2 (01:54→22:31)
[2019-12-11] MEDS: RISPERIDONE 1 MG TABLET PO SCH ×3 (01:54→22:31)
[2019-12-11] MEDS: METFORMIN HCL 500 MG TABLET PO SCH (09:58)
[2019-12-11] MEDS: FLUOXETINE HCL 20 MG CAPSULE PO SCH (10:00)
[2019-12-11] MEDS: DIVALPROEX SODIUM 250 MG TABLET.DR PO SCH (10:01)
[2019-12-11] MEDS: NALTREXONE HCL 50 MG TABLET PO SCH (10:03)
--- NOTE | 2019-12-11 19:32 | ER Document Report ---
Doctor's Note Notes: 12/11/19 19:31 Status unchanged. VSS. Lungs clear. Calm and ambulatory. Dispo still undetermined.
[2019-12-11] MEDS ORDERED: MIDAZOLAM 2 MG/2 ML INJ IM ONE (20:20)
[2019-12-11] MEDS: CHLORPROMAZINE HCL INJ 25 MG/1 ML AMPULE IM PRN (20:21)
[2019-12-11] MEDS ORDERED: HALOPERIDOL LACTATE INJ 5 MG/1 ML VIAL IM ONE (21:39)
[2019-12-12] MEDS: DIVALPROEX SODIUM 250 MG TABLET.DR PO SCH (10:05)
[2019-12-12] MEDS: NALTREXONE HCL 50 MG TABLET PO SCH (10:06)
[2019-12-12] MEDS: METFORMIN HCL 500 MG TABLET PO SCH (10:07)
[2019-12-12] MEDS: FLUOXETINE HCL 20 MG CAPSULE PO SCH (10:08)
[2019-12-12] MEDS: RISPERIDONE 1 MG TABLET PO SCH ×2 (10:08→21:11)
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
--- NOTE | 2019-12-12 12:54 | PSYCHOLOGICAL NOTE ---
Psych Note - Psych Note Date seen by psych provider: 12/10/19 Time seen by psych provider: 10:50 - Evaluation with patient at 1050, ongoing brief interactions throughout the day. 1819 interaction for behavioral issues. Psych Note: At 1050 patient presented euthymic and happy. She was standing in her doorway and appropriately asking for things. She said good morning and asked this clinician f she would come talk with her. This clinician did. She was calm, Cooperative and pleasant. She asked about Kirk the other Behavioral Health worker and was informed she would be working this weekend. Reminded her of singing Itsy Bitsy Spider and patient started in with hand movements of Itsy Bitsy Spider going up the water spout. She smiled and laughed. She had coloring books and crayons on her food tray table. She wanted this clinician to stay and interact with her but unfortunately other patients needed to be seen. Continued a little more interaction then went on to other patients. Throughout the day this clinician observed Attending ED Nurse and Patient Safety Companions having to redirect patient back to her room several times. Each time she listened. At one point around 1819 overheard Attending Nurse ask patient if she needed her "shot that helps her calm down." Patient became more difficult behaviorally but still listened it just took more assertive redirecting. Security was present while nurse was trying to administer Intramuscular as needed medication. patient in corner of her room sitting in chair, moving about, and saying derogatory things. This Clinician went in reminding patient of the two songs she sang with the other Behavioral Health Provider. This clinician sang Twinkle Twinkle little star which did seem to calm her enough to stop moving and saying derogatory things. She was successfully administered the as needed shot, After she was rude and making derogatory statements to Attending ED Nurse. The ED Nurse had removed something due to behavior and patient was upset. This clinician held patient responsible for her actions, explained she could be mad and say "I'm mad or upset" but not curse at people and call them derogatory names. Again patient was upset about items being removed so she then grabbed her sheet. This clinician and Attending Nurse grabbed the sheet and pillow to remove those items as well. Then patient grabbed a crayon that had been left on her food tray table, broke it in half an put it in her mouth. This clinician was almost face to face with patient while she was sitting in the chair in the corner of her room. Demanded she spit out the crayon, explained Kirk would not get a good report and would not be able to spend as much time with her if she did not listen, finally looked patient in the eyes and said "I know you understand what I am saying and you understand more than what most people think, spit out the crayon now." Patient did spit the crayon out onto broken up Styrofoam cup that had been on table and this clinician threw it all away. Patient kept wanting items that had been removed, was informed by medical staff she could get those items back when she started cooperating, following directions and being calm. She continued to have some derogatory language and started being aggressive with food tray table slamming it into bed. On a few occasions she raised hand and each time was assertively redirected to put her hand down as it is not okay to hit people. She would listen and put hand down. This clinician removed the food tray table and firmly/assertively told patient her language was rude and disrespectful, not appropriate and not tolerated. Reminded her she is allowed to be mad, angry and upset but could express that by saying "I'm mad." Medical staff ordered more medication to be administered intramuscularly around nursing staff shit change (1900 or a little after), patient became more emotional versus aggressive, this clinician again sang Twinkle Twinkle Little Star during administration, and after patient was tearful and hugged the night nurse for some time (this was appropriate and not aggressive, security was at bedside as well). Please note patient had behavior increases at times of other patient's in the same area being discharged. She would often say I want to go home, when am I going home. It is felt these discharges were triggers to her behaviors. Impression/Plan: Patient is decompensating due to not being in an appropriate environment where she can get positive stimulation and interaction daily. At this time when others in her area get discharged this seems to be a trigger for her and she can express herself saying she wants to go home, when does she get to go home. Consulted with Dr. Mckeon regarding the management and care of patient.
[2019-12-12] MEDS: CHLORPROMAZINE HCL INJ 25 MG/1 ML AMPULE IM PRN (17:04)
--- NOTE | 2019-12-12 19:20 | ER Document Report ---
Doctor's Note Notes: 12/12/19 19:19 Patient was calm most of the day. She became restless and agitated later in the afternoon and once again started screaming and pounding on the wall. She was medicated with IM Thorazine placed in restraints once again. Still no progress and ultimate disposition for this patient.
[2019-12-12] MEDS ORDERED: MIDAZOLAM 2 MG/2 ML INJ IM ONE (20:49)
[2019-12-12] MEDS: MELATONIN 5 MG TABLET PO SCH (21:11)
[2019-12-13] MEDS: FLUOXETINE HCL 20 MG CAPSULE PO SCH (11:14)
[2019-12-13] MEDS: METFORMIN HCL 500 MG TABLET PO SCH (11:14)
[2019-12-13] MEDS: NALTREXONE HCL 50 MG TABLET PO SCH (11:16)
[2019-12-13] MEDS: DIVALPROEX SODIUM 250 MG TABLET.DR PO SCH (11:16)
[2019-12-13] MEDS: RISPERIDONE 1 MG TABLET PO SCH (11:17)
--- NOTE | 2019-12-13 18:50 | ER Document Report ---
Doctor's Note Notes: 12/13/19 18:49 Patient seen on rounds today, sitting quietly and looking at a book she got at [facility]. Smiles appropriately and recognizes this provider from previous visit. Medication changes were recommended. Those changes have been added to the standing orders. Awaiting a disposition/plan.
[2019-12-13] MEDS: BENZTROPINE MESYLATE 1 MG TABLET PO SCH (19:04)
[2019-12-13] MEDS: DIVALPROEX SODIUM 500 MG TAB.SR.24H PO SCH (19:04)
[2019-12-13] MEDS ORDERED: ACETAMINOPHEN 325 MG TABLET PO ONE (20:38)
[2019-12-13] MEDS: CHLORPROMAZINE HCL 50 MG TABLET PO SCH (21:03)
[2019-12-13] MEDS: MELATONIN 5 MG TABLET PO SCH (21:03)
[2019-12-14] MEDS: DIVALPROEX SODIUM 500 MG TAB.SR.24H PO SCH ×2 (10:00→17:39)
[2019-12-14] MEDS: BENZTROPINE MESYLATE 1 MG TABLET PO SCH ×2 (10:00→17:39)
[2019-12-14] MEDS: METFORMIN HCL 500 MG TABLET PO SCH (10:01)
[2019-12-14] MEDS: RISPERIDONE 1 MG TABLET PO SCH (10:01)
[2019-12-14] MEDS: ACETAMINOPHEN 325 MG TABLET PO PRN ×2 (13:33→20:06)
--- NOTE | 2019-12-14 19:38 | ER Document Report ---
Doctor's Note Notes: 12/14/19 19:36 Patient is exam being cooperative at this time, complaint of toothache related pain. Tylenol is written as a as needed order. She is sitting quietly drawing with the coloring. Waiting disposition.
[2019-12-14] MEDS: MELATONIN 5 MG TABLET PO SCH (21:54)
[2019-12-14] MEDS: CHLORPROMAZINE HCL 50 MG TABLET PO SCH (21:54)
[2019-12-15] MEDS ORDERED: MELATONIN 5 MG TABLET PO ONE (02:33)
[2019-12-15] MEDS: METFORMIN HCL 500 MG TABLET PO SCH (09:51)
[2019-12-15] MEDS: DIVALPROEX SODIUM 500 MG TAB.SR.24H PO SCH ×2 (09:52→18:06)
[2019-12-15] MEDS: BENZTROPINE MESYLATE 1 MG TABLET PO SCH ×2 (09:52→18:06)
[2019-12-15] MEDS: RISPERIDONE 1 MG TABLET PO SCH (09:52)
[2019-12-15] MEDS: CHLORPROMAZINE HCL INJ 25 MG/1 ML AMPULE IM PRN (16:08)
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
[2019-12-15] MEDS ORDERED: POLYETHYLENE GLYCOL 3350 POWDER 17 GM/1 PACKET PO ONE (20:55)
[2019-12-15] MEDS: CHLORPROMAZINE HCL 50 MG TABLET PO SCH (21:43)
[2019-12-15] MEDS: MELATONIN 5 MG TABLET PO SCH (21:43)
[2019-12-16] MEDS: METFORMIN HCL 500 MG TABLET PO SCH (09:06)
[2019-12-16] MEDS: BENZTROPINE MESYLATE 1 MG TABLET PO SCH ×2 (09:08→17:00)
[2019-12-16] MEDS: RISPERIDONE 1 MG TABLET PO SCH (09:08)
[2019-12-16] MEDS: DIVALPROEX SODIUM 500 MG TAB.SR.24H PO SCH ×2 (09:08→17:00)
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
[2019-12-16] MEDS: ACETAMINOPHEN 325 MG TABLET PO PRN (17:00)
--- NOTE | 2019-12-16 18:04 | ER Document Report ---
Doctor's Note Notes: 12/16/19 18:03 Patient examined multiple times throughout the day. Just now patient is sitting in the room comfortably just finished eating dinner. She is smiling and playful. She has no complaints at this time. She is ambulating about the room without problem as well in order to throw her garbage away and her interact with me and the nurses. She has had no significant outburst today has not required restraint.
[2019-12-16] MEDS: CHLORPROMAZINE HCL INJ 25 MG/1 ML AMPULE IM PRN (20:06)
[2019-12-16] MEDS: MELATONIN 5 MG TABLET PO SCH (21:45)
[2019-12-16] MEDS: CHLORPROMAZINE HCL 50 MG TABLET PO SCH (21:54)
[2019-12-17] MEDS: METFORMIN HCL 500 MG TABLET PO SCH (09:57)
[2019-12-17] MEDS: RISPERIDONE 1 MG TABLET PO SCH (09:57)
[2019-12-17] MEDS: BENZTROPINE MESYLATE 1 MG TABLET PO SCH ×2 (09:58→17:44)
[2019-12-17] MEDS: DIVALPROEX SODIUM 500 MG TAB.SR.24H PO SCH ×2 (09:58→17:45)
[2019-12-17] MEDS: CHLORPROMAZINE HCL INJ 25 MG/1 ML AMPULE IM PRN (16:35)
--- NOTE | 2019-12-17 17:29 | ER Document Report ---
Doctor's Note Notes: Addendum entered and electronically signed by FLOR HILLIARD JR, MD 12/17/19 17:28: Provider Note Provider Note: Provider note; S;patient has no complaints except she has a desire for better underwear. She reports the diaper she has on is causing irritation around her privates. She is eating well and using her crayons and watching SpongeBob on television. She denies any fever chills cough cold skin rash diarrhea constipation O;Physical exam HEENT normocephalic atraumatic and neck supple lungs clear to auscultation heart regular rate and rhythm abdomen benign extremities moves all extremities well GAME AUTHOR alert awake cooperative oriented to self and situation A/P; Continue with current observation and disposition is yet to be established for this patient. Original Note: 12/17/19 17:29
[2019-12-17] MEDS: CHLORPROMAZINE HCL 50 MG TABLET PO SCH (21:17)
[2019-12-17] MEDS: MELATONIN 5 MG TABLET PO SCH (21:18)
[2019-12-18] MEDS: CHLORPROMAZINE HCL INJ 25 MG/1 ML AMPULE IM PRN (07:54)
[2019-12-18] MEDS: DIVALPROEX SODIUM 500 MG TAB.SR.24H PO SCH ×2 (11:11→18:44)
[2019-12-18] MEDS: METFORMIN HCL 500 MG TABLET PO SCH (11:11)
[2019-12-18] MEDS: BENZTROPINE MESYLATE 1 MG TABLET PO SCH ×2 (11:12→18:44)
[2019-12-18] MEDS: RISPERIDONE 1 MG TABLET PO SCH (11:12)
--- NOTE | 2019-12-18 16:42 | ER Document Report ---
Doctor's Note Notes: 12/18/19 16:41 Patient has been acting up some today according to the nurses. States she is hit her head on the wall. They are requesting for medication other than the Thorazine she gets. I went in and spoke with the patient just a few minutes ago. She is sitting up in a chair and is quite calm. When asked how she is feeling she said okay. When asked if they had been getting her plenty to eat she said yes. I told her there is still trying to find a place for her to live and hopefully would be able to locate somewhere in the near future. She smiled and said that that would be good.
[2019-12-18] MEDS: CHLORPROMAZINE HCL 50 MG TABLET PO SCH (21:17)
[2019-12-18] MEDS: MELATONIN 5 MG TABLET PO SCH (21:18)
--- NOTE | 2019-12-19 07:13 | ER Document Report ---
Doctor's Note Notes: 12/19/19 07:11 This ED provider note is a note regarding examination of patient yesterday on 12/18/2019. Was asked to see patient after noting her right deltoid muscle where she had been receiving IM medications. Taut and indurated. I examined patient's right deltoid muscle. There was a Band-Aid over her most recent inj ection. The muscle is taut and tight nontender. No drainage. I recommended that that this site should no longer be used until there is improvement in the swelling in the right deltoid muscle. Therefore no further injections in the right deltoid deltoid muscle until the improvement in the local swelling that is present now. Also consider warm compress to area.
[2019-12-19] MEDS: CHLORPROMAZINE HCL INJ 25 MG/1 ML AMPULE IM PRN ×2 (08:53→18:38)
[2019-12-19] MEDS: RISPERIDONE 1 MG TABLET PO SCH (09:37)
[2019-12-19] MEDS: METFORMIN HCL 500 MG TABLET PO SCH (09:37)
[2019-12-19] MEDS: BENZTROPINE MESYLATE 1 MG TABLET PO SCH ×2 (09:38→17:53)
[2019-12-19] MEDS: DIVALPROEX SODIUM 500 MG TAB.SR.24H PO SCH ×2 (09:39→17:52)
--- NOTE | 2019-12-19 11:56 | ER Document Report ---
Doctor's Note Notes: 12/19/19 11:43 PLACEMENT UPDATE Received an email late yesterday evening from Idalia Gibbons of [facility] that a placement for this patient had been identified and the expected discharge to the new provider and placement would occur on Saturday, December 20, 2019. She indicated the Provider, Ms. Peck would be travelling from [place], [place] sometime between 11 am and 1:30 pm to hand picker the patient. She asked that the patient be discharged with a 30 day supply (scripts) of her current medications so [facility] has time to establish a provider in the area for which the patient will reside. Additionally, Idalia asked about the process for having Patient's guardian, i.e. her mother, come to the hospital to sign the discharge paperwork prior to the patient's discharge so that the patient does NOT have interaction with her mother for fear of a major behavioral outburst on the part of the patient. I defer this question to leadership and nursing as this process is outside the scope of my services. Ray Marinelli LCSW of behavioral health services already started discussing with patient the idea that she would be leaving in the near future, but at the time the place and time was uncertain. It is encouraged to continue these efforts in a kind and gentle way, advising her that she will be leaving on Saturday afternoon (tomorrow), not providing specifics on where, but letting her know it will be a new place that will have windows, with nice people, and allow her to see the outside. Encourage her to continue to manage her behavior by possibly drawing pictures she can hang in her new room, etc. as a way to keep her future focused, manage her anxiety, and keep her in a positive frame of mind. At this time it is unclear whether her mother has been notified of this placement, however, it is determined that notification is the responsibility of [facility] and not this facility as they have been the responsible libertarian in this endeavor. Thus, please abstain from contacting mother regarding this discharge until further notice and allow behavior health to take the lead unless notified by leadership or behavior health. We appreciate all the efforts by staff and physicians alike in the care and treatment of this case. If you have questions at this time, please do not hesitate to contact Dr. Mckeon at [phone].
[2019-12-19] MEDS: ACETAMINOPHEN 325 MG TABLET PO PRN ×2 (13:20→17:52)
[2019-12-19] MEDS: MELATONIN 5 MG TABLET PO SCH (21:01)
[2019-12-20] MEDS: CHLORPROMAZINE HCL 50 MG TABLET PO SCH (05:32)
[2019-12-20] MEDS: DIVALPROEX SODIUM 500 MG TAB.SR.24H PO SCH ×3 (09:22→21:42)
[2019-12-20] MEDS: RISPERIDONE 1 MG TABLET PO SCH (09:23)
[2019-12-20] MEDS: METFORMIN HCL 500 MG TABLET PO SCH (09:24)
[2019-12-20] MEDS: BENZTROPINE MESYLATE 1 MG TABLET PO SCH ×2 (09:24→18:22)
--- NOTE | 2019-12-20 11:32 | ER Document Report ---
Doctor's Note Notes: 12/20/19 11:32 PHYSICAL EXAMINATION: GENERAL: Appears disheveled, no acute distress. LUNGS: Equal breath sounds bilaterally and clear to auscultation. No wheezes rales or rhonchi. CARDIOVASCULAR: S1-S2, regular rate, regular rhythm. Radial pulses 2+, normal. ABDOMEN: Normoactive bowel sounds. Soft, nontender, no guarding, no rebound tenderness, and no masses palpated. PSYCH: Developmentally delayed. I evaluated the patient and reviewed the chart. Saw that the patient was prescribed Augmentin on an outpatient basis, but patient had not been on Augmentin here in the hospital. Repeat chest x-ray to evaluate pneumonia. Pneumonia had cleared on its own. We will hold off on Augmentin. [facility] has evaluated the patient patient will be discharged with a 30-day supply of Cogentin, 1 mg p.o. twice daily, Thorazine 100 mg p.o. nightly, Depakote 500 mg p.o. twice daily, melatonin 5 mg p.o. nightly, Risperdal 2 mg p.o. daily, and Metformin 250 mg p.o. daily. 12/20/19 16:39 Patient was ready for discharge and transportation for the other facility had arrived. The patient was outside and ended up sitting down on the ground. The patient ended up not wanting to go into the car. The transportation stated that the facility will not take her with her behavior. Patient was brought back to her room, as she would not go in the car. Patient willingly stood up and walked to her room. Her scrubs were changed. 12/20/19 19:30 Patient was stating that she wanted to kill herself and kill the staff. Patient was educated that this is not appropriate behavior. [facility] has put in recommendations to change Depakote to 500 mg p.o. daily, Depakote 750 mg p.o. nightly, DC Thorazine 100 mg p.o. nightly, add Zyprexa 10 mg p.o. nightly, and change Thorazine 100 mg IM or p.o. every 6 hours as needed for agitation. Change Risperdal 2 mg to every morning. Continue melatonin 5 mg p.o. nightly an d continue Cogentin 1 mg p.o. twice daily. Patient will be reevaluated in the morning.
[2019-12-20] MEDS ORDERED: AMOXICILLIN TR/POT CLAVULANATE 875-125 MG TAB PO ONE (11:43)
--- NOTE | 2019-12-20 12:42 | RADIOLOGY REPORT (SQ) ---
EXAM DESCRIPTION: CHEST SINGLE VIEW IMAGES COMPLETED DATE/TIME: 12/20/2019 12:02 pm REASON FOR STUDY: Re-eval pneumonia COMPARISON: 11/24/2019 EXAM PARAMETERS: NUMBER OF VIEWS: One view. TECHNIQUE: Single frontal radiographic view of the chest acquired. RADIATION DOSE: NA LIMITATIONS: None. FINDINGS: LUNGS AND PLEURA: No opacities, masses or pneumothorax. No pleural effusion. MEDIASTINUM AND HILAR STRUCTURES: No masses. Contour normal. HEART AND VASCULAR STRUCTURES: Heart normal in size. Normal vasculature. BONES: No acute findings. HARDWARE: None in the chest. OTHER: No other significant finding. IMPRESSION: NO ACUTE RADIOGRAPHIC FINDING IN THE CHEST. Pneumonia resolved. TECHNICAL DOCUMENTATION: JOB ID: [id number] 2010 [employer]- All Rights Reserved Reading location - IP/workstation name: [email or web address]
[2019-12-20] MEDS ORDERED: RISPERIDONE 1 MG TAB.RAPDIS PO ONE (13:07)
[2019-12-20] MEDS ORDERED: DIPHENHYDRAMINE HCL 50 MG CAPSULE PO ONE (19:00)
[2019-12-20] MEDS: OLANZAPINE 5 MG TABLET PO SCH (21:40)
[2019-12-20] MEDS: DIVALPROEX SODIUM 250 MG TAB.SR.24H PO SCH (21:41)
[2019-12-20] MEDS: MELATONIN 5 MG TABLET PO SCH (21:41)
[2019-12-20] MEDS ORDERED: DIVALPROEX SODIUM 500 MG TAB.SR.24H PO SCH (22:00)
--- NOTE | 2019-12-20 23:22 | ER Document Report ---
Doctor's Note Notes: 12/20/19 Assumed care of patient from nurse practitioner Roxy Neff. Patient was supposed to go to residential today in [place] but apparently prior to going and try to get into the car ride she had a behavioral issue and was refusing to go. She has had some difficulty since then this evening but was given medicine and has quieted down and gone to bed. We will continue to monitor patient closely. Roxy did suggest that if patient continued to act out that she may require restraints but currently at this point time patient is resting. We will continue to monitor
[2019-12-21] MEDS: RISPERIDONE 1 MG TABLET PO SCH (09:14)
[2019-12-21] MEDS: DIVALPROEX SODIUM 500 MG TAB.SR.24H PO SCH ×2 (09:14→22:25)
[2019-12-21] MEDS: BENZTROPINE MESYLATE 1 MG TABLET PO SCH ×2 (09:14→22:25)
[2019-12-21] MEDS: METFORMIN HCL 500 MG TABLET PO SCH (09:14)
[2019-12-21] MEDS: CHLORPROMAZINE HCL INJ 25 MG/1 ML AMPULE IM PRN (14:08)
--- NOTE | 2019-12-21 17:47 | ER Document Report ---
Doctor's Note Notes: 12/21/19 17:44 Patient examined just now. Patient is smiling and walking about the room. Patient is just finished eating dinner. Earlier patient was having an episode where she apparently was depressed and sitting on the floor. She had a long talk with the behavioral health provider and is now in a much better disposit ion. Patient is also recently started her menstrual cycle and has been complaining of a mild headache but declined Tylenol. Patient did refuse to accept the transportation to a [facility] yesterday and currently a second attempt at being able to arrange transportation for the patient to this [facility] is being pursued by [facility]. At this time patient has no complaints.
[2019-12-21] MEDS: MELATONIN 5 MG TABLET PO SCH (22:24)
[2019-12-21] MEDS: OLANZAPINE 5 MG TABLET PO SCH (22:24)
[2019-12-21] MEDS: DIVALPROEX SODIUM 250 MG TAB.SR.24H PO SCH (22:25)
[2019-12-22] MEDS: BENZTROPINE MESYLATE 1 MG TABLET PO SCH ×2 (09:39→21:48)
[2019-12-22] MEDS: METFORMIN HCL 500 MG TABLET PO SCH ×2 (09:39→11:18)
[2019-12-22] MEDS: DIVALPROEX SODIUM 500 MG TAB.SR.24H PO SCH ×2 (09:39→21:49)
[2019-12-22] MEDS: RISPERIDONE 1 MG TABLET PO SCH (09:39)
[2019-12-22] MEDS: CHLORPROMAZINE HCL INJ 25 MG/1 ML AMPULE IM PRN ×2 (10:10→19:17)
[2019-12-22] MEDS: ACETAMINOPHEN 325 MG TABLET PO PRN (18:23)
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
[2019-12-22] MEDS: DIVALPROEX SODIUM 250 MG TAB.SR.24H PO SCH (21:48)
[2019-12-22] MEDS: MELATONIN 5 MG TABLET PO SCH (21:50)
[2019-12-22] MEDS: OLANZAPINE 5 MG TABLET PO SCH (21:50)
[2019-12-23] MEDS: BENZTROPINE MESYLATE 1 MG TABLET PO SCH ×2 (09:17→21:10)
[2019-12-23] MEDS: DIVALPROEX SODIUM 500 MG TAB.SR.24H PO SCH ×2 (09:18→21:11)
[2019-12-23] MEDS: RISPERIDONE 1 MG TABLET PO SCH (09:18)
[2019-12-23] MEDS: METFORMIN HCL 500 MG TABLET PO SCH (09:18)
[2019-12-23] MEDS: CHLORPROMAZINE HCL INJ 25 MG/1 ML AMPULE IM PRN ×3 (09:19→20:51)
[2019-12-23] MEDS: ACETAMINOPHEN 325 MG TABLET PO PRN (14:12)
--- NOTE | 2019-12-23 15:54 | ER Document Report ---
Doctor's Note Notes: 12/23/19 15:53 Patient reassessed approximately 3 PM. Patient was sitting in a chair resting comfortably holding her baby doll. According to nursing she has eaten today without problem. Patient has had some labile emotions today and has tried to swing at nurses several times. She has been given 2 doses of Thorazine. At this time she is calm and cooperative and denies any significant complaints and as stated above she is sitting in a chair conversing with me.
[2019-12-23] MEDS: OLANZAPINE 5 MG TABLET PO SCH (21:10)
[2019-12-23] MEDS: MELATONIN 5 MG TABLET PO SCH (21:11)
[2019-12-23] MEDS: DIVALPROEX SODIUM 250 MG TAB.SR.24H PO SCH (21:14)
[2019-12-23] MEDS ORDERED: LORAZEPAM INJ 2 MG/1 ML VIAL IM ONE (23:06)
[2019-12-24] MEDS: DIVALPROEX SODIUM 500 MG TAB.SR.24H PO SCH ×2 (11:02→21:38)
[2019-12-24] MEDS: RISPERIDONE 1 MG TABLET PO SCH (11:03)
[2019-12-24] MEDS: BENZTROPINE MESYLATE 1 MG TABLET PO SCH ×2 (11:03→21:38)
--- NOTE | 2019-12-24 14:56 | PSYCHOLOGICAL NOTE ---
Psych Note - Psych Note Date seen by psych provider: 12/12/19 Time seen by psych provider: 12:00 Psych Note: Please restrain after violent outburst. Prior to violent outburst patient was verbally inappropriate and requiring significant redirection though her coloring book were taken away. Patient is behavioral outburst was previous evening after behavioral health team was done for the day. Patient is currently calm and engaging appropriately. Clinician was able to organize a small trick or treat time walking with patient to the nurses and saying [id number]. It is noted that [id number] with the patient was prior to lunch. Once the patient needed to charge nurse, the patient was demonstrating behaviors that she was starting to become overwhelmed i.e. covering her face with her hand. Clinician asked if patient was ready to go back to her room, patient agreed. No further events. Patient has become upset this afternoon when seeing clinician entering other people's rooms to do evaluation. Patient attempts to enter the room in which clinician is in with another patient. Clinician had to redirect. There is concern the patient is demonstrating significant jealousy towards whether patient in regards to this clinician. Other staff can engage in similar de- escalation techniques such as singing nursery rhymes and reading a short book to the patient, talking in a soft voice using positive reinforcement techniques. This may assist and also lowering the patient frequent demands to only engaged with this clinician.
--- NOTE | 2019-12-24 15:02 | PSYCHOLOGICAL NOTE ---
Psych Note - Psych Note Date seen by psych provider: 12/16/19 Time seen by psych provider: 12:00 Psych Note: Clinician continues to use the nursery rhymes to help de-escalation patient. Patient continues to demonstrate significant attachment to this clinician. When patient becomes behavioral with other staff, it is noted that at times it is difficult to de-escalate her however it appears that positive reinforcement is not always used. It is again recommended to engage in positive reinforcement and redirections with this patient as she will escalate very quickly in response to emotions around her. Is the patient is told to do something that she does not want to do she will refuse. Patient will need to be redirected just as a young child would need. Patient also drives in consistency and structure.
--- NOTE | 2019-12-24 15:07 | PSYCHOLOGICAL NOTE ---
Psych Note - Psych Note Date seen by psych provider: 12/20/19 Time seen by psych provider: 12:30 - 1730 Psych Note: Patient was initially very excited about her new placement. She allowed clinician to fix her hair. Patient asked for her shoes and her belongings and s miled when talking about placement. Upon arrival of provider from placement, it was noted the provider approached the patient in a very open and friendly manner. Unfortunately the providers voice was very loud which upon initial meeting seem to overwhelm the patient. Patient immediately stated she did not want to leave and covered her head with a blanket. This clinician with the assistance of the clinician on duty for the day work with the patient over 4 hours in an attempt to get the patient outside for transportation to her new placement. Unfortunately, effort by both clinician and multiple [facility] staff members was unsuccessful. It is noted the patient did not act out in a physical manner that have been seen previously such as biting hitting scratching and spitting. Patient did throw a cup of juice; however, patient is did not cause any injury.
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
--- NOTE | 2019-12-24 15:12 | PSYCHOLOGICAL NOTE ---
Psych Note - Psych Note Date seen by psych provider: 12/22/19 Psych Note: Patient continues to demonstrate difficulty with the emotions today. No other changes are noted.
--- NOTE | 2019-12-24 20:19 | ER Document Report ---
Doctor's Note Notes: 12/24/19 20:19 Patient has had a fairly uneventful day today. They have allowed furniture to go back into her room. She still waiting on finding suitable placement.
[2019-12-24] MEDS: MELATONIN 5 MG TABLET PO SCH (21:38)
[2019-12-24] MEDS: OLANZAPINE 5 MG TABLET PO SCH (21:38)
[2019-12-24] MEDS: DIVALPROEX SODIUM 250 MG TAB.SR.24H PO SCH (21:39)
[2019-12-24] MEDS ORDERED: DIPHENHYDRAMINE HCL 50 MG/ML VIAL IM ONE (21:46)
[2019-12-24] MEDS: CHLORPROMAZINE HCL INJ 25 MG/1 ML AMPULE IM PRN (21:58)
[2019-12-25] MEDS: BENZTROPINE MESYLATE 1 MG TABLET PO SCH ×2 (09:23→23:29)
[2019-12-25] MEDS: RISPERIDONE 1 MG TABLET PO SCH (09:23)
[2019-12-25] MEDS: DIVALPROEX SODIUM 500 MG TAB.SR.24H PO SCH ×2 (09:23→23:29)
[2019-12-25] MEDS: CHLORPROMAZINE HCL INJ 25 MG/1 ML AMPULE IM PRN (11:40)
--- NOTE | 2019-12-25 12:27 | ER Document Report ---
Doctor's Note Notes: 12/25/19 12:26 Patient became violent and was given Thorazine 100 mg IM, this did not seem to calm her down and after about 45 minutes we placed her in restraints for her and the staff safety. Kirk Marinelli from [facility] is in talking with the patient right now. 12/25/19 17:42 I did discuss the case with Kirk Marinelli. She reports she thinks the patient has gotten worse this past week because she is on her menstrual cycle. She also suggested that the patient may need a change in her medication regimen to cont rol her behavioral outburst. She is going to get back to me with recommended medication changes. I did suggest that they consider placing her on the Depo shot if this is a regular problem since she gets so violent. 12/25/19 20:16 The medication recommendations were to stop the Thorazine today. Stop the Zyprexa after tonight, so no dose tomorrow. Add Prozac 20 mg daily, add Haldol 5 mg IM Q8 prn, add Prolixin 5 mg p.o. twice daily starting tomorrow morning Follows discussing the new medications with the nurse, the patient came out of her room was standing in the hallway cursing and refusing to go back in her room. The nurse picked up the bag of restraints and walked up to the patient asking her did she want to be put back in the restraints and at that point the patient became compliant and went back into the room.
[2019-12-25] MEDS ORDERED: HALOPERIDOL LACTATE INJ 5 MG/1 ML VIAL IM ONE (20:18)
[2019-12-25] MEDS: FLUOXETINE HCL 20 MG CAPSULE PO SCH (20:46)
[2019-12-25] MEDS ORDERED: LORAZEPAM INJ 2 MG/1 ML VIAL IM ONE (21:58)
[2019-12-25] MEDS ORDERED: ZIPRASIDONE MESYLATE INJ/PF 20 MG SDV IM ONE (21:58)
[2019-12-25] MEDS ORDERED: OLANZAPINE 5 MG TABLET PO ONE (22:00)
--- NOTE | 2019-12-25 22:00 | ER Document Report ---
Doctor's Note Notes: 12/25/19 21:59 This MD was personally found mild nursing taking care of this patient that the patient has tried several times to strangle herself using everything from the elastic lining in her pants to the bed sheets. This MD ordered restraints, Geodon, and Ativan because the patient is posing a problem in terms of potential for physical harm to self.
[2019-12-25] MEDS ORDERED: DIPHENHYDRAMINE HCL 50 MG/ML VIAL IM ONE (23:22)
[2019-12-25] MEDS: DIVALPROEX SODIUM 250 MG TAB.SR.24H PO SCH (23:29)
[2019-12-25] MEDS: MELATONIN 5 MG TABLET PO SCH (23:29)
[2019-12-25] MEDS ORDERED: CHLORPROMAZINE HCL INJ 25 MG/1 ML AMPULE IM ONE (23:39)
--- NOTE | 2019-12-26 00:14 | PSYCHOLOGICAL NOTE ---
Psych Note - Psych Note Date seen by psych provider: 12/18/19 Time seen by psych provider: 12:49 Psych Note: Collateral from Attending Medical Staff at 1030. Evaluation with patient from [id number]. Presenting Problem: Behavioral. History of IDD and Autism. Clinical Presentation: Clinical Presentation: Patient is chronologically 19 but developmentally more like an 6 year old child given IDD and Autism diagnoses She required lots of redirection because she is not getting the appropriate interaction and stimulation needed since she is in an ED Triggers seem to be other people getting discharged, not getting attention/interaction when she wants it Impression/Plan: Per medical staff report patient was incontinent often but has continent episodes suggesting some control. She often wears briefs as a result, after numerous peeing episodes where it is now dried up the nylon underpants she wears requires more frequent changing and patient wants to wear them, she gets upset when someone mentions briefs and says they are for babies. She yelled out often getting louder, and whining. Medical staff working with patient day in and day out noted the Thorazine seems to do well for a couple hours maybe. When observed in later morning she hair her hair done up nice. This clinician mentioned it and provided some other positives. She was eating lunch and said she ate breakfast. When redirected and told to sit she listened. Patient does well when she has lots of interaction and various things to keep herself busy. She often needs to be told to keep herself busy but will listen. It is known of individuals with diagnoses of IDD and Autism that structure, routine, and preparation for changes of what's to come be available and enforced. This is difficult in and ED setting since it is acute. This would also be difficult in acute (again referencing short term) mental health hospitalization which is meant for medication stabilization and does not have the interaction/appropriate stimulation component. Consulted with Dr. Mckeon regarding the management and care of patient.
--- NOTE | 2019-12-26 00:39 | PSYCHOLOGICAL NOTE ---
Psych Note - Psych Note Date seen by psych provider: 12/19/19 Time seen by psych provider: 10:00 Psych Note: At 1000 preparation for discharge today to Ms. Peck with respite in [place]. Ongoing with assistance in persuading patient to go with new provider for discharge. Prepared for discharge. Called mother Ann at 1623. She sounded as if she had been crying. She stated APS said no to follow patient, 2 let the two providers take her. and said she had just spoke with Ms. Peck who said she shouldn't have called. Inquired whether she felt patient would respond to her on the phone or in person to aid in getting patient discharged to treatment [facility] set up. Presenting Problem: Behavioral. History of IDD and Autism. Clinical Presentation: Clinical Presentation: Patient is chronologically 19 but developmentally more like an 6 year old child given IDD and Autism diagnoses She required lots of redirection because she is not getting the appropriate interaction and stimulation needed since she is in an ED Triggers seem to be other people getting discharged, not getting attention/interaction when she wants it Medication recommendations made by the psychiatric medication provider Dr. Amanda GARSIA., includes: Change Depakote ER to 500MG in the morning and 750MG at night Discontinue Thorazine 100MG at night Add Zyprexa 10MG at night Change Thorazine to 100MG by mouth or intramuscular every 6 hours as needed, Change Risperdal to 2MG dissolving tab in the morning Continue Melatonin 5MG at night Continue Cogentin 1MG twice a day to curb tremor side effects often associated with antipsycotic medication Impression/Plan: Patient had a typical morning. When reminded of discharge today she sat in chair in corner of her room after shower, put weighted blanket overhead, and acted shy. She listened when this clinician asked her to remove cover from head. Talked about discharge. She smiled. When asked if she was happy she said "yeah." Once Ms. Peck arrived she needed to obtain prescriptions and decision was for her to go before discharge of patient. This clinician, the other Behavioral Health Clinician, Liv, and briefly the Attending ED physician tried to get patient discharged. Patient at first would not get up out of chair in corner of room where she remained under the weighted blanket while sitting. Finally she got into a wheel chair with her IPad, baby, and weighted blanket. Once outside Ms. Peck was in bathroom and patient saw only Ms. Peck's son who was helping/driving. She had a behavioral episode and would not get into their vehicle. It was an unsuccessful attempt even with use of both clinician's and familiar and medical staff. Ms. Peck explained it was an JOHN home, no locked doors, no ability to restrain. She stated she was not aware of patient;s behaviors and had been told she was stabilized. It was explained this is patient's baseline. She was able to get [employer] worker Idalia ([phone]) on the phone and it was settled that patient would remain in emergency department and team meeting to take place tomorrow morning. Patient was put back in room 46. She had not been removed or discharge time put in. It was gain explained that patient is at baseline. Patient does well when she has lots of interaction and various things to keep herself busy. She often needs to be told to keep herself busy but will listen. It is known of individuals with diagnoses of IDD and Autism that structure, routine, and preparation for changes of what's to come be available and enforced. This is difficult in and ED setting since it is acute. This would also be difficult in acute (again referencing short term) mental health hospitalization which is meant for medication stabilization and does not have the interaction/appropriate stimulation component. Consulted with Dr. Mckeon regarding the management and care of patient.
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
--- NOTE | 2019-12-26 00:49 | PSYCHOLOGICAL NOTE ---
Psych Note - Psych Note Date seen by psych provider: 12/24/19 Time seen by psych provider: 16:29 Psych Note: Went to check in on patient at 1629 after a quiet day for her. Presenting Problem: Behavioral. History of IDD and Autism. Clinical Presentation: Clinical Presentation: Patient is chronologically 19 but developmentally more like an 6 year old child given IDD and Autism diagnoses She required lots of redirection because she is not getting the appropriate interaction and stimulation needed since she is in an ED Triggers seem to be other people getting discharged, not getting attention/interaction when she wants it Impression/Plan: Patient was quiet throughout the day. There were no reports from medical staff. When this clinician went to check in on her she was sleeping. Allowed her to sleep. Patient does well when she has lots of interaction and various things to keep herself busy. She often needs to be told to keep herself busy but will listen. It is known of individuals with diagnoses of IDD and Autism that structure, routine, and preparation for changes of what's to come be available and enforced. This is difficult in and ED setting since it is acute. This would also be difficult in acute (again referencing short term) mental health hospitalization which is meant for medication stabilization and does not have the interaction/appropriate stimulation component. Consulted with Dr. Mckeon regarding the management and care of patient.
[2019-12-26] MEDS: FLUPHENAZINE HCL 2.5 MG TABLET PO SCH ×2 (10:30→17:28)
[2019-12-26] MEDS: DIVALPROEX SODIUM 500 MG TAB.SR.24H PO SCH ×2 (10:31→23:09)
[2019-12-26] MEDS: RISPERIDONE 1 MG TABLET PO SCH (10:31)
[2019-12-26] MEDS: BENZTROPINE MESYLATE 1 MG TABLET PO SCH ×2 (10:31→23:09)
[2019-12-26] MEDS: FLUOXETINE HCL 20 MG CAPSULE PO SCH (10:31)
[2019-12-26] MEDS ORDERED: HALOPERIDOL 5 MG TABLET PO ONE (10:45)
--- NOTE | 2019-12-26 13:53 | PSYCHOLOGICAL NOTE ---
Psych Note - Psych Note Date seen by psych provider: 12/03/19 Time seen by psych provider: 12:00 Psych Note: The behavioral health team has recommended and continues to recommend the patient should not have her IPad as it can be used as a weapon. It is recommended that any personal belongings of the patient that is brought in be put into a security locker. please DO NOT give Benadryl, Ativan, Versed, Xanax ie no Benzodiazapines or an ticholinergic (other than Cogentin as ordered) as these result in an escalation of extreme behavioral outbursts. Also, please avoid the use of excessive anti- psychotics ie Geodon, Haldol, rispirdone, Zyprexa, Thorazine (except as per order identified in the MAR); other considerations for deescalation of behaviours are verbal deescalation, using language appropriate for a child between the ages of 4-6, and using firm but not demeaning or derogatory language. PLEASE Use clear, short, calm, and slow statements Use Positive reinforcement Provided alternate activities when redirecting Please follow the medication recommendations. If possible, please avoid/or limit adding PRN/one dose medications in an attempt to control patient's behaviours.
[2019-12-26] MEDS ORDERED: DIPHENHYDRAMINE HCL 50 MG/ML VIAL IM ONE (15:07)
[2019-12-26] MEDS ORDERED: MIDAZOLAM 2 MG/2 ML INJ IM ONE (16:00)
--- NOTE | 2019-12-26 19:58 | PSYCHOLOGICAL NOTE ---
Psych Note - Psych Note Date seen by psych provider: 12/26/19 Time seen by psych provider: 12:00 Psych Note: The behavioral health team has recommended and continues to recommend the patient should not have her IPad as it can be used as a weapon. It is recommended that any personal belongings of the patient that is brought in be put into a security locker. please DO NOT give Benadryl, Ativan, Versed, Xanax ie no Benzodiazapines or an ticholinergic (other than Cogentin as ordered) as these result in an escalation of extreme behavioral outbursts. Also, please avoid the use of excessive anti- psychotics ie Geodon, Haldol, rispirdone, Zyprexa, Thorazine (except as per order identified in the MAR); other considerations for deescalation of behaviours are verbal deescalation, using language appropriate for a child between the ages of 4-6, and using firm but not demeaning or derogatory language. PLEASE Use clear, short, calm, and slow statements Use Positive reinforcement Provided alternate activities when redirecting Please follow the medication recommendations. If possible, please avoid/or limit adding PRN/one dose medications in an attempt to control patient's behaviours. Medication recommendations per [facility]'s contracted psychiatrist are as follows: Propranolol hydrochloride 60mg PO tablet (for immediate release) or equivalent in IM every 12 hours as needed (per appropriate blood pressure) to address aggression and agitation
[2019-12-26] MEDS ORDERED: ACETAMINOPHEN 325 MG TABLET PO ONE ×2 (20:09→20:10)
--- NOTE | 2019-12-26 20:12 | PSYCHOLOGICAL NOTE ---
Psych Note - Psych Note Date seen by psych provider: 12/19/19 Time seen by psych provider: 15:02 Psych Note: Collateral from [facility] Behavioral Health Director Integrated regarding placement for tomorrow. Evaluation with patient from [id number]. Presenting Problem: Behavioral. History of IDD and Autism. Clinical Presentation: Clinical Presentation: Patient is chronologically 19 but developmentally more like an 6 year old child given IDD and Autism diagnoses She required lots of redirection because she is not getting the appropriate interaction and stimulation needed since she is in an ED Triggers seem to be other people getting discharged, not getting atten tion/interaction when she wants it Impression/Plan: Patient leaves tomorrow between [id number] to go with Ms. Peck from [place] for respite placement. Medical staff involved to coordinate with patient's mother. [facility] Behavioral Health involved to try to prepare and assist patient with transition. The other Behavioral Health Clinician has been talking with patient already about going some place other than home. It was noted yesterday patient had issues with wearing briefs and wanting underwear which carried over into this morning. She banged head against wall and cussed. There was an issue with Attending Nurse and methods of providing consequences so nurses were switched out and administration involved. This clinician informed patient about placement tomorrow, not at [facility], and a woman named Ms. Peck would be picking her up. She had weighted blanket over her lap and smiled. She stated she was happy about leaving. Patient does well when she has lots of interaction and various things to keep herself busy. She often needs to be told to keep herself busy but will listen. It is known of individuals with diagnoses of IDD and Autism that structure, routine, and preparation for changes of what's to come be available and enforced. This is difficult in and ED setting since it is acute. This would also be difficult in acute (again referencing short term) mental health hospitalization which is meant for medication stabilization and does not have the interaction/appropriate stimulation component. Consulted with Dr. Mckeon regarding the management and care of patient.
--- NOTE | 2019-12-26 20:42 | RADIOLOGY REPORT (SQ) ---
EXAM DESCRIPTION: XR CHEST 1 VIEW COMPLETED DATE/TME: 12/26/2019 20:23 CLINICAL HISTORY: 19 years, Female, new onset fever COMPARISON: 12/20/2019 NUMBER OF VIEWS: One TECHNIQUE: AP view the chest LIMITATIONS: None. FINDINGS: The lungs are clear. Heart is normal in size. No pneumothorax or pleural effusion. Bones are unremarkable. Gaseous distention of the stomach. IMPRESSION: No acute cardiopulmonary abnormality. copyright 2010 [employer]- All Rights Reserved
[2019-12-26] MEDS: MELATONIN 5 MG TABLET PO SCH (23:09)
[2019-12-26] MEDS: DIVALPROEX SODIUM 250 MG TAB.SR.24H PO SCH (23:09)
--- NOTE | 2019-12-26 23:23 | ER Document Report ---
Doctor's Note Notes: 12/26/19 23:22 I was notified by nursing that the patient had a fever. I did go back and evaluate the patient. She is complaining of a mild headache. She denied any other complaints. On exam she is cooperative. Awake and alert. She is walking without difficulty. Head is normocephalic. No meningismus, pupils are equal round reactive to light. Heart is regular rate and rhythm, lungs are clear to auscultation bilaterally. She has no muscle rigidity. I did order CBC, CMP, Depakote level, urinalysis, blood culture. Patient will likely need Covid test as well. Patient given Tylenol with response. Differential diagnosis certainly includes neuroleptic malignant syndrome or drug reaction, in addition to possib le infectious etiology. She is not showing any muscle rigidity. She is not showing any meningeal signs at this time. Her mental status is difficult to evaluate secondary to her behavioral issues. Awaiting test results, we will continue to monitor. 12/27/19 00:32 Patient has still not yet produced a urine sample. Her lab work shows a worsened anemia, but no leukocytosis. Her metabolic panel is unremarkable. Her Depakote level is in the therapeutic range. Her chest x-ray is unremarkable. I still do not have a clear source for her fever. Awaiting urinalysis. If urinalysis does not show obvious source, patient will likely require a Covid test. Again per nursing she seems to be neurologically stable. Her fever did respond to Tylenol. She is not exhibiting rigidity, diaphoresis, or other signs of neuroleptic malignant syndrome or other serotonergic issue. We will continue to monitor.
[2019-12-26 23:43] LABS: ABSOLUTE LYMPHOCYTES (AUTO) 2.4 10^3/uL (0.5-4.7); ABSOLUTE NEUT (AUTO) 6.3 10^3/uL (1.7-8.2); BASOPHILS % (AUTO) 0.3 % (0-2); EOSINOPHILS % (AUTO) 0.3 % (0-6); HEMATOCRIT 29.3 % (36.0-47.0); HEMOGLOBIN 9.9 g/dL (12.0-15.5); LYMPHOCYTES % (AUTO) 24.7 % (13-45); MEAN CORPUSCULAR HGB CONC 33.9 g/dL (32.0-36.0); MEAN CORPUSCULAR VOLUME 86 fl (80-97); MONOCYTES % (AUTO) 10.4 % (3-13); PLATELET COUNT 246 10^3/uL (150-450); RED BLOOD COUNT 3.42 10^6/uL (3.72-5.28); SEGMENTED NEUTROPHILS % (AUTO) 64.3 % (42-78); TOTAL CELLS COUNTED % (AUTO) 100 %; WHITE BLOOD COUNT 9.8 10^3/uL (4.0-10.5)
[2019-12-27 00:04] LABS: ALBUMIN 3.8 g/dL (3.5-5.0); ALKALINE PHOSPHATASE 49 U/L (38-126); ANION GAP 11 (5-19); ASPARTATE AMINO TRANSFERASE 19 U/L (14-36); BILIRUBIN,DIRECT 0.1 mg/dL (0.0-0.4); BILIRUBIN,TOTAL 0.5 mg/dL (0.2-1.3); BLOOD UREA NITROGEN 9 mg/dL (7-20); CALCIUM 9.4 mg/dL (8.4-10.2); CARBON DIOXIDE 26 mmol/L (22-30); CHLORIDE 102 mmol/L (98-107); GLUCOSE 118 mg/dL (75-110); POTASSIUM 4.2 mmol/L (3.6-5.0); TOTAL PROTEIN 6.4 g/dL (6.3-8.2)
[2019-12-27] MEDS: FLUPHENAZINE HCL 2.5 MG TABLET PO SCH ×2 (11:28→18:41)
[2019-12-27] MEDS: PROPRANOLOL HCL 20 MG TABLET PO PRN (11:29)
[2019-12-27] MEDS: BENZTROPINE MESYLATE 1 MG TABLET PO SCH ×2 (11:30→21:38)
[2019-12-27] MEDS: RISPERIDONE 1 MG TABLET PO SCH (11:30)
[2019-12-27] MEDS: DIVALPROEX SODIUM 500 MG TAB.SR.24H PO SCH ×2 (11:30→21:38)
[2019-12-27] MEDS: FLUOXETINE HCL 20 MG CAPSULE PO SCH (11:31)
[2019-12-27 12:41] LABS: APPEARANCE,URINE CLOUDY; BILIRUBIN,URINE NEGATIVE (NEGATIVE); COLOR,URINE AMBER; GLUCOSE, URINE NEGATIVE (NEGATIVE); KETONES,URINE NEGATIVE (NEGATIVE); LEUKOCYTE ESTERASE,URINE SMALL (NEGATIVE); NITRITE,URINE NEGATIVE (NEGATIVE); PROTEIN,URINE 100 mg/dL (NEGATIVE); URINE SPECIFIC GRAVITY 1.038
--- NOTE | 2019-12-27 17:04 | PSYCHOLOGICAL NOTE ---
Psych Note - Psych Note Date seen by psych provider: 12/27/19 Time seen by psych provider: 11:00 Psych Note: Patient continues to have a difficult time; however, it is noted to be slightly calmer to include napping. Patient continues to cuss and physically lash out. S He is having a difficult time understanding why she can no longer go to her "new placement" (the respite placement that was unsuccessful last Saturday12/20/2019). Patient has started having verbal contact with her mother this week; it is unclear if it is a one event or the combination of events ie hormones, hearing mom and not going home, and having the unsuccessful placement event that has continued to keep the patient emotional with escalated behaviors.
[2019-12-27] MEDS: HALOPERIDOL LACTATE INJ 5 MG/1 ML VIAL IM PRN (21:38)
[2019-12-27] MEDS: MELATONIN 5 MG TABLET PO SCH (21:38)
[2019-12-27] MEDS: DIVALPROEX SODIUM 250 MG TAB.SR.24H PO SCH (21:38)
[2019-12-28] MEDS: PROPRANOLOL HCL 20 MG TABLET PO PRN (01:45)
[2019-12-28] MEDS: DIVALPROEX SODIUM 500 MG TAB.SR.24H PO SCH ×2 (10:00→21:52)
[2019-12-28] MEDS: FLUOXETINE HCL 20 MG CAPSULE PO SCH (10:00)
[2019-12-28] MEDS: RISPERIDONE 1 MG TABLET PO SCH (10:00)
[2019-12-28] MEDS: FLUPHENAZINE HCL 2.5 MG TABLET PO SCH ×2 (10:00→18:00)
[2019-12-28] MEDS: BENZTROPINE MESYLATE 1 MG TABLET PO SCH ×2 (10:00→21:53)
[2019-12-28] MEDS ORDERED: LEVOFLOXACIN 750 MG TABLET PO ONE (10:31)
--- NOTE | 2019-12-28 10:34 | ER Document Report ---
Doctor's Note Notes: 12/28/19 10:33 Daily rounding Patient sleeping upon rounding. Nurse states the patient really has had no complaints. Patient has been eating breakfast. The patient finally give a urine yesterday. And there was a few white cells but I would not call this an overwhelming infection at all she did have some contamination I will give her a single dose of Levaquin here which should more than cover anything in the urine. Otherwise I do not think she needs ongoing antibiotics.
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
[2019-12-28] MEDS: HALOPERIDOL LACTATE INJ 5 MG/1 ML VIAL IM PRN (17:13)
[2019-12-28] MEDS ORDERED: CHLORPROMAZINE HCL INJ 25 MG/1 ML AMPULE IM ONE (18:51)
[2019-12-28] MEDS: DIVALPROEX SODIUM 250 MG TAB.SR.24H PO SCH (21:53)
[2019-12-28] MEDS: MELATONIN 5 MG TABLET PO SCH (21:53)
[2019-12-29] MEDS: HALOPERIDOL LACTATE INJ 5 MG/1 ML VIAL IM PRN (01:00)
[2019-12-29] MEDS: RISPERIDONE 1 MG TABLET PO SCH (10:00)
[2019-12-29] MEDS: BENZTROPINE MESYLATE 1 MG TABLET PO SCH ×2 (10:00→23:00)
[2019-12-29] MEDS: FLUPHENAZINE HCL 2.5 MG TABLET PO SCH ×2 (10:00→18:00)
[2019-12-29] MEDS: FLUOXETINE HCL 20 MG CAPSULE PO SCH (10:00)
[2019-12-29] MEDS: DIVALPROEX SODIUM 500 MG TAB.SR.24H PO SCH ×2 (10:00→23:00)
[2019-12-29] MEDS: PROPRANOLOL HCL 20 MG TABLET PO PRN ×2 (11:02→22:59)
--- NOTE | 2019-12-29 14:58 | PSYCHOLOGICAL NOTE ---
Psych Note - Psych Note Date seen by psych provider: 12/29/19 Time seen by psych provider: 14:39 Psych Note: [id number] Patient continues to have a difficult time in the ED. Patient had a difficult night where she tried to wrap sheet around her neck, was banging her head against the wall, and was yelling. She was difficult to redirect. Patient has been pleasant today after breakfast. She has been sleeping most of the day, therefore is not showing behavioral issues. Will allow patient to sleep as she has not been sleeping much or well over the past few days and had been acting out poorly throughout recent nights.
[2019-12-29] MEDS: DIVALPROEX SODIUM 250 MG TAB.SR.24H PO SCH (22:59)
[2019-12-29] MEDS: MELATONIN 5 MG TABLET PO SCH (23:16)
[2019-12-30] MEDS: FLUOXETINE HCL 20 MG CAPSULE PO SCH (10:32)
[2019-12-30] MEDS: FLUPHENAZINE HCL 2.5 MG TABLET PO SCH ×3 (10:32→20:13)
[2019-12-30] MEDS: BENZTROPINE MESYLATE 1 MG TABLET PO SCH ×2 (10:32→21:48)
[2019-12-30] MEDS: RISPERIDONE 1 MG TABLET PO SCH (10:33)
[2019-12-30] MEDS: DIVALPROEX SODIUM 500 MG TAB.SR.24H PO SCH ×2 (10:33→21:48)
--- NOTE | 2019-12-30 17:14 | ER Document Report ---
Doctor's Note Notes: 12/30/19 17:10 Provider note; I was made aware of patient's leg edema bilaterally upon arrival to my seat at 1700 today. Patient is on respite all which is well known to cause peripheral edema ; on medication information it appears this is a potent serotonin receptor antagonist and dopamine antagonist widely prescribed for behavioral problems. Weight gain and sedation of them most commonly reported adverse effects however edema was included in the [place] formulary 2002. 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 We will suggest a cessation of this particular drug as well as Lasix 10 mg daily for 5 days
[2019-12-30] MEDS ORDERED: FUROSEMIDE 20 MG TABLET PO ONE (17:15)
[2019-12-30 18:08] LABS: ABSOLUTE LYMPHOCYTES (AUTO) 2.6 10^3/uL (0.5-4.7); ABSOLUTE MONOCYTES (AUTO) 0.6 10^3/uL (0.1-1.4); ABSOLUTE NEUT (AUTO) 4.2 10^3/uL (1.7-8.2); BASOPHILS % (AUTO) 0.4 % (0-2); EOSINOPHILS % (AUTO) 0.4 % (0-6); HEMATOCRIT 30.5 % (36.0-47.0); LYMPHOCYTES % (AUTO) 34.4 % (13-45); MEAN CORPUSCULAR HGB CONC 32.8 g/dL (32.0-36.0); MEAN CORPUSCULAR VOLUME 86 fl (80-97); MONOCYTES % (AUTO) 8.1 % (3-13); PLATELET COUNT 265 10^3/uL (150-450); RED BLOOD COUNT 3.56 10^6/uL (3.72-5.28); RED CELL DISTRIBUTION WIDTH 13.4 % (11.5-14.0); SEGMENTED NEUTROPHILS % (AUTO) 56.7 % (42-78); TOTAL CELLS COUNTED % (AUTO) 100 %; WHITE BLOOD COUNT 7.4 10^3/uL (4.0-10.5)
[2019-12-30 18:32] LABS: ALBUMIN 4.1 g/dL (3.5-5.0); ALKALINE PHOSPHATASE 47 U/L (38-126); ANION GAP 10 (5-19); ASPARTATE AMINO TRANSFERASE 16 U/L (14-36); BILIRUBIN,DIRECT 0.1 mg/dL (0.0-0.4); BILIRUBIN,TOTAL 0.4 mg/dL (0.2-1.3); BLOOD UREA NITROGEN 14 mg/dL (7-20); CALCIUM 9.5 mg/dL (8.4-10.2); CARBON DIOXIDE 28 mmol/L (22-30); CHLORIDE 102 mmol/L (98-107); GLUCOSE 89 mg/dL (75-110); POTASSIUM 4.6 mmol/L (3.6-5.0); TOTAL PROTEIN 6.8 g/dL (6.3-8.2)
--- NOTE | 2019-12-30 18:46 | PSYCHOLOGICAL NOTE ---
Psych Note - Psych Note Date seen by psych provider: 12/30/19 Time seen by psych provider: 10:00 Psych Note: medication recommendations per [facility]'s contracted psychiatrist are as follows: Discontinue risperdone decrease prolixin to 2.5mg twice daily
--- NOTE | 2019-12-30 19:12 | ER Document Report ---
Doctor's Note Notes: 12/30/19 19:11 The patient had been developing some lower extremity swelling according to the nurse. She was given a dose of Lasix by Dr. Thomson earlier. Kirk Marinelli made a note about the psychiatrist recommending that the Risperdal be stopped and the Prolixin reduced to 2.5 mg twice daily. I put the orders in for the decrease in the Prolixin and to stop the Risperdal.
[2019-12-30] MEDS: DIVALPROEX SODIUM 250 MG TAB.SR.24H PO SCH (21:48)
[2019-12-30] MEDS: MELATONIN 5 MG TABLET PO SCH (21:49)
[2019-12-31] MEDS: PROPRANOLOL HCL 20 MG TABLET PO PRN (09:28)
[2019-12-31] MEDS: DIVALPROEX SODIUM 500 MG TAB.SR.24H PO SCH ×2 (09:28→21:29)
[2019-12-31] MEDS: BENZTROPINE MESYLATE 1 MG TABLET PO SCH ×2 (09:28→21:29)
[2019-12-31] MEDS: FLUOXETINE HCL 20 MG CAPSULE PO SCH (09:28)
[2019-12-31] MEDS: FLUPHENAZINE HCL 2.5 MG TABLET PO SCH ×2 (09:31→18:26)
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
[2019-12-31] MEDS: HALOPERIDOL LACTATE INJ 5 MG/1 ML VIAL IM PRN (14:20)
--- NOTE | 2019-12-31 17:07 | ER Document Report ---
Doctor's Note Notes: 12/31/19 17:05 He has full range of motion of previously noted lower extremity. Swelling has significantly improved with adjustment of psychotropic medications as previously discussed. I do not see any definite indication for maintenance dose of Lasix and patient at this time. We will continue to monitor this daily. Behavioral medicine team has conducted a telemedicine placement interview today and we await final word regarding further disposition.
[2019-12-31] MEDS: DIVALPROEX SODIUM 250 MG TAB.SR.24H PO SCH (21:29)
[2019-12-31] MEDS: MELATONIN 5 MG TABLET PO SCH (21:30)
[2019-12-31] MEDS: ACETAMINOPHEN 325 MG TABLET PO PRN (21:30)
[2020-01-01] MEDS: FLUPHENAZINE HCL 2.5 MG TABLET PO SCH ×2 (09:37→17:46)
[2020-01-01] MEDS: BENZTROPINE MESYLATE 1 MG TABLET PO SCH ×2 (09:37→21:51)
[2020-01-01] MEDS: DIVALPROEX SODIUM 500 MG TAB.SR.24H PO SCH ×2 (09:37→21:51)
[2020-01-01] MEDS: FLUOXETINE HCL 20 MG CAPSULE PO SCH (09:38)
--- NOTE | 2020-01-01 11:47 | ER Document Report ---
Doctor's Note Notes: 01/01/20 11:47 Patient resting comfortably at this time. Requested patient she had any complaints at this time and she denies. Patient denies having any pain at this time and patient is in her room being cooperative. Discussed case with nurse patient is receiving her medications as prescribed and there at this time is no significant medical problems her cooperation with taking her medications. Vital signs are stable afebrile. Plan is to continue placement with the mental health team directing this process along with case management.
[2020-01-01] MEDS: ACETAMINOPHEN 325 MG TABLET PO PRN (12:33)
[2020-01-01] MEDS: HALOPERIDOL LACTATE INJ 5 MG/1 ML VIAL IM PRN (14:11)
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
[2020-01-01] MEDS: MELATONIN 5 MG TABLET PO SCH (21:51)
[2020-01-01] MEDS: DIVALPROEX SODIUM 250 MG TAB.SR.24H PO SCH (21:52)
[2020-01-02] MEDS: FLUPHENAZINE HCL 2.5 MG TABLET PO SCH ×2 (11:15→19:47)
[2020-01-02] MEDS: DIVALPROEX SODIUM 500 MG TAB.SR.24H PO SCH ×2 (11:18→21:36)
[2020-01-02] MEDS: FLUOXETINE HCL 20 MG CAPSULE PO SCH (11:18)
[2020-01-02] MEDS: BENZTROPINE MESYLATE 1 MG TABLET PO SCH ×2 (11:18→21:35)
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
--- NOTE | 2020-01-02 19:41 | ER Document Report ---
Doctor's Note Notes: 01/02/20 19:40 Vital signs stable. Most recent labs as recorded. We are still awaiting placement. Patient intermittently becomes very agitated. She did require restraints given some aggressive behavior earlier. We have then removed the restraints given good behavior. Medications have been provided. Still awaiting transfer.
[2020-01-02] MEDS: ACETAMINOPHEN 325 MG TABLET PO PRN (19:47)
[2020-01-02] MEDS: MELATONIN 5 MG TABLET PO SCH (21:35)
[2020-01-02] MEDS: HALOPERIDOL LACTATE INJ 5 MG/1 ML VIAL IM PRN (21:35)
[2020-01-02] MEDS: DIVALPROEX SODIUM 250 MG TAB.SR.24H PO SCH (21:36)
[2020-01-03] MEDS ORDERED: DIAZEPAM INJ 10 MG/2 ML DISP.SYRIN IM ONE (02:22)
[2020-01-03] MEDS: FLUOXETINE HCL 20 MG CAPSULE PO SCH (09:19)
[2020-01-03] MEDS: FLUPHENAZINE HCL 2.5 MG TABLET PO SCH ×2 (09:19→17:43)
[2020-01-03] MEDS: DIVALPROEX SODIUM 500 MG TAB.SR.24H PO SCH (09:19)
[2020-01-03] MEDS: BENZTROPINE MESYLATE 1 MG TABLET PO SCH (09:19)
[2020-01-03] MEDS: ACETAMINOPHEN 325 MG TABLET PO PRN (14:54)
[2020-01-03] MEDS: HALOPERIDOL LACTATE INJ 5 MG/1 ML VIAL IM PRN (15:25)
--- NOTE | 2020-01-03 18:46 | ER Document Report ---
Doctor's Note Notes: 01/03/20 18:46 Vital signs stable. Patient still awaiting placement. Patient intermittently has emotional outbursts and is being treated with medications.
[2020-01-03] MEDS ORDERED: HALOPERIDOL LACTATE INJ 5 MG/1 ML VIAL IM ONE (19:53)
--- NOTE | 2020-01-03 20:11 | PSYCHOLOGICAL NOTE ---
Psych Note - Psych Note Date seen by psych provider: 01/03/20 Time seen by psych provider: 14:00 Psych Note: 1999 Patient continues to have a difficult time in the ED. She continues to leave room without permission and has to be told multiple times to do something. Restraints had to be used. Continues to be defiant and no listen to staff. Patients next scheduled meeting with alex johnson provider will be 01/05/2020, at Noon via iPad. Dr. Mckeon was consulted to care management of this patient; attending physicians in agreement with recommendations and disposition
[2020-01-03] MEDS: MELATONIN 5 MG TABLET PO SCH (22:30)
[2020-01-03] MEDS: DIVALPROEX SODIUM 250 MG TAB.SR.24H PO SCH (22:30)
[2020-01-04] MEDS: DIVALPROEX SODIUM 500 MG TAB.SR.24H PO SCH ×3 (01:17→23:21)
[2020-01-04] MEDS: BENZTROPINE MESYLATE 1 MG TABLET PO SCH ×3 (01:18→23:21)
[2020-01-04] MEDS ORDERED: TRAZODONE HCL 50 MG TABLET PO ONE ×2 (01:59→18:17)
[2020-01-04] MEDS: FLUOXETINE HCL 20 MG CAPSULE PO SCH (12:07)
[2020-01-04] MEDS: FLUPHENAZINE HCL 2.5 MG TABLET PO SCH ×2 (12:07→17:52)
[2020-01-04] MEDS: ACETAMINOPHEN 325 MG TABLET PO PRN ×2 (12:34→17:52)
[2020-01-04] MEDS: HALOPERIDOL LACTATE INJ 5 MG/1 ML VIAL IM PRN ×2 (13:35→23:21)
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
[2020-01-04] MEDS: MELATONIN 5 MG TABLET PO SCH (23:20)
[2020-01-04] MEDS: DIVALPROEX SODIUM 250 MG TAB.SR.24H PO SCH (23:21)
[2020-01-05] MEDS: DIVALPROEX SODIUM 500 MG TAB.SR.24H PO SCH ×2 (11:16→21:03)
[2020-01-05] MEDS: PROPRANOLOL HCL 20 MG TABLET PO PRN (11:16)
[2020-01-05] MEDS: MULTIVITAMIN TABLET PO SCH (11:17)
[2020-01-05] MEDS: BENZTROPINE MESYLATE 1 MG TABLET PO SCH ×2 (11:18→21:03)
[2020-01-05] MEDS: FLUOXETINE HCL 20 MG CAPSULE PO SCH (11:18)
[2020-01-05] MEDS: FLUPHENAZINE HCL 2.5 MG TABLET PO SCH ×2 (11:18→19:16)
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
[2020-01-05] MEDS: ACETAMINOPHEN 325 MG TABLET PO PRN (19:15)
[2020-01-05] MEDS ORDERED: TRAZODONE HCL 50 MG TABLET PO ONE (20:46)
[2020-01-05] MEDS: DIVALPROEX SODIUM 250 MG TAB.SR.24H PO SCH (21:04)
[2020-01-05] MEDS: MELATONIN 5 MG TABLET PO SCH (21:05)
[2020-01-06] MEDS: FLUPHENAZINE HCL 2.5 MG TABLET PO SCH ×2 (11:39→18:16)
[2020-01-06] MEDS: DIVALPROEX SODIUM 500 MG TAB.SR.24H PO SCH ×2 (11:39→21:06)
[2020-01-06] MEDS: BENZTROPINE MESYLATE 1 MG TABLET PO SCH ×2 (11:40→21:06)
[2020-01-06] MEDS: MULTIVITAMIN TABLET PO SCH (11:40)
[2020-01-06] MEDS: FLUOXETINE HCL 20 MG CAPSULE PO SCH (11:40)
[2020-01-06] MEDS: PROPRANOLOL HCL 20 MG TABLET PO PRN (12:33)
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
[2020-01-06] MEDS ORDERED: TRAZODONE HCL 50 MG TABLET PO ONE (20:35)
[2020-01-06] MEDS ORDERED: MELATONIN 5 MG TABLET PO ONE (20:36)
[2020-01-06] MEDS: DIVALPROEX SODIUM 250 MG TAB.SR.24H PO SCH (21:06)
[2020-01-06] MEDS: MELATONIN 5 MG TABLET PO SCH (21:06)
[2020-01-07] MEDS: PROPRANOLOL HCL 20 MG TABLET PO PRN (10:06)
[2020-01-07] MEDS: MULTIVITAMIN TABLET PO SCH (10:06)
[2020-01-07] MEDS: FLUOXETINE HCL 20 MG CAPSULE PO SCH (10:06)
[2020-01-07] MEDS: DIVALPROEX SODIUM 500 MG TAB.SR.24H PO SCH ×2 (10:06→21:06)
[2020-01-07] MEDS: BENZTROPINE MESYLATE 1 MG TABLET PO SCH ×2 (10:07→21:06)
[2020-01-07] MEDS: FLUPHENAZINE HCL 2.5 MG TABLET PO SCH ×2 (10:07→18:39)
--- NOTE | 2020-01-07 11:19 | ER Document Report ---
Doctor's Note Notes: 01/07/20 11:17 Patient continues to be calm at times and then have episodes of agitation and violence towards staff. No significant change from prior. Patient is alert on exam. She is in restraints due to violent behavior towards staff. Heart is regular rate and rhythm. Bilateral lung sounds are clear. She is breathing easy on room air. Disposition is still pending at this time. 01/07/20 11:18 01/07/20 11:19
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
[2020-01-07] MEDS ORDERED: TRAZODONE HCL 50 MG TABLET PO ONE (20:38)
[2020-01-07] MEDS: DIVALPROEX SODIUM 250 MG TAB.SR.24H PO SCH (21:06)
[2020-01-07] MEDS ORDERED: KETAMINE HCL INJ 500 MG/10 ML VIAL IM ONE (22:14)
[2020-01-07] MEDS ORDERED: LORAZEPAM INJ 2 MG/1 ML VIAL IM ONE (22:14)
--- NOTE | 2020-01-07 22:17 | ER Document Report ---
Doctor's Note Notes: 01/07/20 22:15 Provider note at 2210; patient became quite agitated around 2200 and patient currently is being secured to bed [facility] by 3 security officers 3 nurses and 1 tech and having hard raheel applied for staff safety and patient safety. Patient is screaming and very agitated at this time. We will write for ketamine 100 and Ativan 2 IM.
[2020-01-08] MEDS: FLUOXETINE HCL 20 MG CAPSULE PO SCH (10:24)
[2020-01-08] MEDS: MULTIVITAMIN TABLET PO SCH (10:24)
[2020-01-08] MEDS: FLUPHENAZINE HCL 2.5 MG TABLET PO SCH ×2 (10:24→18:18)
[2020-01-08] MEDS: BENZTROPINE MESYLATE 1 MG TABLET PO SCH ×2 (10:24→21:33)
[2020-01-08] MEDS: DIVALPROEX SODIUM 500 MG TAB.SR.24H PO SCH ×2 (10:24→21:33)
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
[2020-01-08] MEDS: DIVALPROEX SODIUM 250 MG TAB.SR.24H PO SCH (21:33)
[2020-01-08] MEDS: HALOPERIDOL LACTATE INJ 5 MG/1 ML VIAL IM PRN (21:34)
[2020-01-08] MEDS: PROPRANOLOL HCL 20 MG TABLET PO PRN (21:35)
[2020-01-09] MEDS: PROPRANOLOL HCL 20 MG TABLET PO PRN (10:14)
[2020-01-09] MEDS: FLUPHENAZINE HCL 2.5 MG TABLET PO SCH ×2 (10:14→22:21)
[2020-01-09] MEDS: BENZTROPINE MESYLATE 1 MG TABLET PO SCH ×2 (10:14→22:56)
[2020-01-09] MEDS: MULTIVITAMIN TABLET PO SCH (10:14)
[2020-01-09] MEDS: FLUOXETINE HCL 20 MG CAPSULE PO SCH (10:14)
[2020-01-09] MEDS: DIVALPROEX SODIUM 500 MG TAB.SR.24H PO SCH ×2 (10:14→22:56)
[2020-01-09] MEDS: DIVALPROEX SODIUM 250 MG TAB.SR.24H PO SCH (22:56)
[2020-01-10] MEDS: FLUPHENAZINE HCL 2.5 MG TABLET PO SCH ×2 (11:58→17:41)
[2020-01-10] MEDS: DIVALPROEX SODIUM 500 MG TAB.SR.24H PO SCH ×2 (12:07→23:18)
[2020-01-10] MEDS: FLUOXETINE HCL 20 MG CAPSULE PO SCH (12:07)
[2020-01-10] MEDS: BENZTROPINE MESYLATE 1 MG TABLET PO SCH ×2 (12:07→23:16)
[2020-01-10] MEDS: MULTIVITAMIN TABLET PO SCH (12:07)
[2020-01-10] MEDS: HALOPERIDOL LACTATE INJ 5 MG/1 ML VIAL IM PRN (17:25)
--- NOTE | 2020-01-10 19:30 | ER Document Report ---
Doctor's Note Notes: 01/10/20 19:28 Nursing staff is noted that the patient seems to become more agitated after she receives Prolixin. Patient much less agitated after the medication has been temporarily stopped. We discussed this with behavioral service and plan currently is to hold medication indefinitely. At the time of my [id number] evaluation the patient was relatively calm at times and cooperative. loft worker head and behavioral team continue to work on placement issues for this patient. Still no definitive disposition for this patient.
[2020-01-10] MEDS ORDERED: HALOPERIDOL LACTATE INJ 5 MG/1 ML VIAL IM ONE (20:33)
[2020-01-10] MEDS: DIVALPROEX SODIUM 250 MG TAB.SR.24H PO SCH (23:16)
[2020-01-11] MEDS: PROPRANOLOL HCL 20 MG TABLET PO PRN ×2 (03:54→10:41)
[2020-01-11] MEDS: ACETAMINOPHEN 325 MG TABLET PO PRN (03:58)
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
[2020-01-11] MEDS: DIVALPROEX SODIUM 500 MG TAB.SR.24H PO SCH ×2 (10:41→22:22)
[2020-01-11] MEDS: FLUOXETINE HCL 20 MG CAPSULE PO SCH (10:41)
[2020-01-11] MEDS: BENZTROPINE MESYLATE 1 MG TABLET PO SCH ×2 (10:41→22:21)
[2020-01-11] MEDS: MULTIVITAMIN TABLET PO SCH (10:41)
--- NOTE | 2020-01-11 13:58 | ER Document Report ---
Doctor's Note Notes: Patient is now on day 49 of her ED visit. Patient was seen and assessed at bedside, she is currently sleeping in the recliner, she is no longer in restraints. Will continue current care plan as we await placement for this patient.
--- NOTE | 2020-01-11 14:44 | PSYCHOLOGICAL NOTE ---
Psych Note - Psych Note Date seen by psych provider: 01/11/20 Time seen by psych provider: 14:40 Psych Note: 1440 Patient continues to have a difficult time in the ED. She continues to swear at staff, tries to bite staff, and spits at staff. She did voice wanting her mother and wanting to go home and continues to be agitated and difficult to redirect. She spends much time in restraints due to choosing to not follow directions and being dangerous to staff and self.
[2020-01-11] MEDS: HALOPERIDOL LACTATE INJ 5 MG/1 ML VIAL IM PRN (20:00)
[2020-01-11] MEDS: DIVALPROEX SODIUM 250 MG TAB.SR.24H PO SCH (22:22)
[2020-01-12] MEDS ORDERED: TRAZODONE HCL 50 MG TABLET PO ONE ×2 (01:25→21:12)
[2020-01-12] MEDS: DIVALPROEX SODIUM 500 MG TAB.SR.24H PO SCH ×2 (10:08→21:32)
[2020-01-12] MEDS: MULTIVITAMIN TABLET PO SCH (10:08)
[2020-01-12] MEDS: FLUOXETINE HCL 20 MG CAPSULE PO SCH (10:08)
[2020-01-12] MEDS: BENZTROPINE MESYLATE 1 MG TABLET PO SCH ×2 (10:09→21:30)
[2020-01-12] MEDS: HALOPERIDOL LACTATE INJ 5 MG/1 ML VIAL IM PRN (15:20)
--- NOTE | 2020-01-12 17:23 | ER Document Report ---
Doctor's Note Notes: 01/12/20 17:22 Patient seen and examined just now. Patient is sitting in the room with the nurses watching football. Has no complaints she is eating goldfish as well. She is currently still awaiting placement. Patient has not required any significant restraints or sedation for me today.
[2020-01-12] MEDS: DIVALPROEX SODIUM 250 MG TAB.SR.24H PO SCH (21:33)
[2020-01-12 23:26] LABS: APPEARANCE,URINE SLIGHTLY-CLOUDY; BILIRUBIN,URINE NEGATIVE (NEGATIVE); COLOR,URINE AMBER; GLUCOSE, URINE NEGATIVE (NEGATIVE); KETONES,URINE TRACE mg/dL (NEGATIVE); LEUKOCYTE ESTERASE,URINE TRACE (NEGATIVE); NITRITE,URINE NEGATIVE (NEGATIVE); PROTEIN,URINE 30 mg/dL (NEGATIVE); URINE SPECIFIC GRAVITY 1.034
[2020-01-13 00:22] LABS: CHLAM PCR NOT DETECTED (NOT DETECT)
[2020-01-13] MEDS: PROPRANOLOL HCL 20 MG TABLET PO PRN ×2 (10:52→22:19)
[2020-01-13] MEDS: MULTIVITAMIN TABLET PO SCH (10:53)
[2020-01-13] MEDS: BENZTROPINE MESYLATE 1 MG TABLET PO SCH ×2 (10:53→21:20)
[2020-01-13] MEDS: FLUOXETINE HCL 20 MG CAPSULE PO SCH (10:53)
[2020-01-13] MEDS: DIVALPROEX SODIUM 500 MG TAB.SR.24H PO SCH ×2 (10:53→21:20)
[2020-01-13] MEDS: HALOPERIDOL LACTATE INJ 5 MG/1 ML VIAL IM PRN ×2 (10:53→21:20)
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
--- NOTE | 2020-01-13 19:21 | PSYCHOLOGICAL NOTE ---
Psych Note - Psych Note Date seen by psych provider: 01/08/20 Time seen by psych provider: 12:00 Psych Note: please DO NOT give Trazadone, Benadryl, Ativan, Versed, Xanax as these result in an escalation of extreme behavioral outbursts the next day. Also, please avoid the use of excessive anti-psychotics ie Geodon, Haldol, rispirdone, Zyprexa, Thorazine (except as per order identified in the MAR); other considerations for deescalation of behaviours are verbal deescalation, using language appropriate for a child between the ages of 4-6, and using firm but not demeaning or derogatory language. PLEASE Use clear, short, calm, and slow statements Use Positive reinforcement Provided alternate activities when redirecting Please follow the medication recommendations. If possible, please avoid/or l imit adding PRN/one dose medications in an attempt to control patient's behaviours.
--- NOTE | 2020-01-13 19:24 | PSYCHOLOGICAL NOTE ---
Psych Note - Psych Note Date seen by psych provider: 01/13/20 Time seen by psych provider: 12:00 Psych Note: Through out this patient's stay, [facility]'s psychiatrist has been providing medication recommendations. It has been noted and addressed (both in reports and verbally) with attending physicians concerns the patient has been receiving medication not in recommendations in an effort to manage behaviours. It has been explained there are concerns that certain medications result in an escalation of extreme behavioral outbursts and have requested these medications be avoided. Due to ongoing use of these medications, the Behavioral health team will not longer provided medication recommendations for this patient due to liability issues.
[2020-01-13] MEDS: DIVALPROEX SODIUM 250 MG TAB.SR.24H PO SCH (21:20)
[2020-01-13] MEDS ORDERED: TRAZODONE HCL 50 MG TABLET PO ONE (23:26)
[2020-01-14] MEDS: MULTIVITAMIN TABLET PO SCH (11:01)
[2020-01-14] MEDS: DIVALPROEX SODIUM 500 MG TAB.SR.24H PO SCH ×2 (11:02→21:07)
[2020-01-14] MEDS: BENZTROPINE MESYLATE 1 MG TABLET PO SCH ×2 (11:02→21:07)
[2020-01-14] MEDS: FLUOXETINE HCL 20 MG CAPSULE PO SCH (11:02)
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
[2020-01-14] MEDS: HALOPERIDOL LACTATE INJ 5 MG/1 ML VIAL IM PRN ×2 (14:00→19:58)
[2020-01-14] MEDS: PROPRANOLOL HCL 20 MG TABLET PO PRN (14:36)
[2020-01-14] MEDS: DIVALPROEX SODIUM 250 MG TAB.SR.24H PO SCH (21:07)
[2020-01-15] MEDS: FLUOXETINE HCL 20 MG CAPSULE PO SCH (10:46)
[2020-01-15] MEDS: BENZTROPINE MESYLATE 1 MG TABLET PO SCH ×2 (10:46→22:42)
[2020-01-15] MEDS: DIVALPROEX SODIUM 500 MG TAB.SR.24H PO SCH ×2 (10:46→22:42)
[2020-01-15] MEDS: MULTIVITAMIN TABLET PO SCH (10:46)
--- NOTE | 2020-01-15 18:25 | ER Document Report ---
Doctor's Note Notes: 01/15/20 18:24 Patient has been seen and assessed. No acute complaints. Patient has been more behaved with stable vital signs. Medications have been provided. No focal deficits. Clear lungs bilaterally.
[2020-01-15] MEDS: DIVALPROEX SODIUM 250 MG TAB.SR.24H PO SCH (22:41)
[2020-01-15] MEDS ORDERED: TRAZODONE HCL 50 MG TABLET PO ONE (23:29)
[2020-01-16] MEDS: BENZTROPINE MESYLATE 1 MG TABLET PO SCH ×2 (12:27→23:56)
[2020-01-16] MEDS: FLUOXETINE HCL 20 MG CAPSULE PO SCH (12:27)
[2020-01-16] MEDS: DIVALPROEX SODIUM 500 MG TAB.SR.24H PO SCH ×2 (12:27→23:56)
[2020-01-16] MEDS: MULTIVITAMIN TABLET PO SCH (12:28)
[2020-01-16] MEDS ORDERED: MULTIVITAMIN TABLET PO ONE (13:00)
[2020-01-16] MEDS ORDERED: FLUOXETINE HCL 20 MG CAPSULE PO ONE (13:00)
[2020-01-16] MEDS ORDERED: BENZTROPINE MESYLATE 1 MG TABLET PO ONE (13:00)
[2020-01-16] MEDS ORDERED: DIVALPROEX SODIUM 500 MG TAB.SR.24H PO ONE (13:00)
[2020-01-16] MEDS: PROPRANOLOL HCL 20 MG TABLET PO PRN (14:39)
--- NOTE | 2020-01-16 19:16 | ER Document Report ---
Doctor's Note Notes: 01/16/20 19:12 I rounded on the patient today. Vital signs are stable. Patient is much more calm and cooperative today. She has not needed restraint. Patient is in no acute distress. Taking meds appropriately. Still awaiting placement. Heart and lung examination is unremarkable and the abdomen is soft and nontender.
[2020-01-16] MEDS: HALOPERIDOL LACTATE INJ 5 MG/1 ML VIAL IM PRN (23:56)
[2020-01-16] MEDS: DIVALPROEX SODIUM 250 MG TAB.SR.24H PO SCH (23:57)
[2020-01-17] MEDS ORDERED: TRAZODONE HCL 50 MG TABLET PO ONE (00:04)
[2020-01-17] MEDS: DIVALPROEX SODIUM 500 MG TAB.SR.24H PO SCH (09:33)
[2020-01-17] MEDS: BENZTROPINE MESYLATE 1 MG TABLET PO SCH (09:34)
[2020-01-17] MEDS: PROPRANOLOL HCL 20 MG TABLET PO PRN (09:34)
[2020-01-17] MEDS: FLUOXETINE HCL 20 MG CAPSULE PO SCH (09:35)
[2020-01-17] MEDS: MULTIVITAMIN TABLET PO SCH (09:35)
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
[2020-01-18] MEDS: DIVALPROEX SODIUM 500 MG TAB.SR.24H PO SCH
[2020-01-18] MEDS: DIVALPROEX SODIUM 250 MG TAB.SR.24H PO SCH
[2020-01-18] MEDS: BENZTROPINE MESYLATE 1 MG TABLET PO SCH (00:17)
[2020-01-18] MEDS: HALOPERIDOL LACTATE INJ 5 MG/1 ML VIAL IM PRN (00:17)
[2020-01-18] MEDS ORDERED: TRAZODONE HCL 50 MG TABLET PO SCH (02:00)
[2020-01-18] MEDS ORDERED: TRAZODONE HCL 50 MG TABLET PO ONE (03:00)
[2020-01-18 05:21] VITALS: BP 112/65
--- NOTE | 2020-01-18 07:43 | PSYCHOLOGICAL NOTE ---
Psych Note - Psych Note Date seen by psych provider: 01/18/20 Psych Note: Follow up care The patient is to be discharged to a [facility] residential facility for IDD. She will be transported to her [facility] residential facility via [facility] transportation service. Dr. Mckeon was consulted to care management of this patient; attending physicians in agreement with recommendations and disposition.
--- NOTE | 2020-01-18 08:46 | ER Document Report ---
Doctor's Note Notes: 01/18/20 08:45 All prescriptions entered and printed. Discharge packet printed. [facility] is at bedside to transport patient to facility. Please correlate with nursing notes. 01/18/20 08:50 [id number] evaluation made with patient. Patient is resting with eyes closed. She had received sedative medications through the night. Her respirations are equal and unlabored. She is arousable. Transport is here to take patient to the longterm/long-term facility. She will be discharged at this time.
== END 2020-01-18 09:00 | disposition home or self-care (01) ==
LOC: ER 14:22
DX: F84.0 Autistic disorder (principal); J69.0 Pneumonitis due to inhalation of food and vomit; R62.50 Unspecified lack of expected normal physiological development in childhood; E11.9 Type 2 diabetes mellitus without complications; E66.01 Morbid (severe) obesity due to excess calories; R45.1 Restlessness and agitation; Z78.1 Physical restraint status; Z20.828 Contact with and (suspected) exposure to other viral communicable diseases
CPT/HCPCS: 31500; 93005; 99285; 96372 ×12; 96361; 51702; 96374; 36415; 87040; 87086; 82962; 80307 ×4; 82140; 82550; 83735; 85025; 85610; 85730; 0241U ×4; 81025; 80048; 80053; 81001; 80164; 87491; 87591; 71045; 94660; 93010; A9270 ×376; J2250 ×3; J0515; J3230 ×25; J3360; J1200 ×4; J1630 ×19; J3490 ×13; J2060 ×3; J3486; J7030; C9803